=== PATIENT | male | born 1950 | race Caucasian/White ===

== ENCOUNTER → 2016-12-11 | Outpatient (REF) | payer BC ==
[2016-12-11 12:17] LABS: ALBUMIN 3.7 GM/DL (3.2-5.2); ALBUMIN/GLOBULIN RATIO 1.06 (1.00-1.93); ALKALINE PHOSPHATASE 82 U/L (45-117); ALT/SGPT 48 U/L (12-78); ANION GAP 9 MEQ/L (8-16); AST/SGOT 30 U/L (15-37); BILIRUBIN,TOTAL 0.5 MG/DL (0.2-1.0); BLOOD UREA NITROGEN 11 MG/DL (7-18); CALCIUM LEVEL 8.8 MG/DL (8.8-10.2); CARBON DIOXIDE LEVEL 27 MEQ/L (21-32); CHLORIDE LEVEL 102 MEQ/L (98-107); CHOLESTEROL LEVEL 174 MG/DL (<200); CREATININE FOR GFR 0.73 MG/DL (0.70-1.30); GLOMERULAR FILTRATION RATE > 60.0 (>49); GLUCOSE, FASTING 121 MG/DL (80-110); POTASSIUM SERUM 4.1 MEQ/L (3.5-5.1); SODIUM LEVEL 138 MEQ/L (136-145); TOTAL PROTEIN 7.2 GM/DL (6.4-8.2); TRIGLYCERIDES LEVEL 69 MG/DL (<150)
== END ==
LOC: M SFHCCLAY 07:00
PROVIDERS: ATTEND Family Medicine
DX: E78.00 Pure hypercholesterolemia, unspecified (principal); Z12.5 Encounter for screening for malignant neoplasm of prostate; I10 Essential (primary) hypertension
CPT/HCPCS: 80053; 80061; 84443; G0103

== ENCOUNTER → 2017-01-29 | Outpatient (CLI) | payer BC ==
--- NOTE | 2017-01-29 13:24 | REP ---
Clinical: Lung screening. Smoking history. Technique: Axial noncontrast low-dose imaging from the thoracic inlet to the upper abdomen using lung screening technique. Findings: Scattered bilateral fibrosis and scarring with associated bronchiectasis. No obvious pulmonary nodule, consolidation or mass lesion. No pleural effusion or pneumothorax. Tracheobronchial tree appears patent. Mediastinum suggests atherosclerotic changes of the coronary arteries. Impression: Lung-RADS category 1 although subtle early density may be obscured by the above mentioned chronic changes. Signed by Clark Patel MD 01/29/2017 01:16 P
== END ==
LOC: M RAD 12:55
PROVIDERS: ATTEND Family Medicine
DX: Z12.2 Encounter for screening for malignant neoplasm of respiratory organs (principal); Z72.0 Tobacco use

== ENCOUNTER → 2018-04-06 | Outpatient (REF) | payer MEDICARE ==
[2018-04-06 11:48] LABS: ALBUMIN 3.3 GM/DL (3.2-5.2); ALBUMIN/GLOBULIN RATIO 0.79 (1.00-1.93); ALKALINE PHOSPHATASE 101 U/L (45-117); ALT/SGPT 15 U/L (12-78); ANION GAP 6 MEQ/L (8-16); AST/SGOT 13 U/L (7-37); BILIRUBIN,TOTAL 0.4 MG/DL (0.2-1.0); BLOOD UREA NITROGEN 12 MG/DL (7-18); CALCIUM LEVEL 8.5 MG/DL (8.8-10.2); CARBON DIOXIDE LEVEL 27 MEQ/L (21-32); CHLORIDE LEVEL 106 MEQ/L (98-107); CHOLESTEROL LEVEL 151 MG/DL (<200); CHOLESTEROL RISK RATIO 3.212 (<5); GLOMERULAR FILTRATION RATE > 60.0 (>49); GLUCOSE, FASTING 106 MG/DL (70-100); HDL CHOLESTEROL 47 MG/DL (>40); LDL CHOLESTEROL 93.2 MG/DL (<100); NON-HDL-C 104 MG/DL; POTASSIUM SERUM 4.1 MEQ/L (3.5-5.1); SODIUM LEVEL 139 MEQ/L (136-145); TOTAL PROTEIN 7.5 GM/DL (6.4-8.2); TRIGLYCERIDES LEVEL 54 MG/DL (<150)
== END ==
LOC: M SFHCCLAY 07:04
DX: E78.00 Pure hypercholesterolemia, unspecified (principal); Z12.5 Encounter for screening for malignant neoplasm of prostate; I10 Essential (primary) hypertension
CPT/HCPCS: 84443

== ENCOUNTER → 2018-04-16 | Outpatient (CLI) | payer MEDICARE | LOC: M CLY 10:14 | DX: M25.552 Pain in left hip (principal) | CPT/HCPCS: 73502; 93005 ==

== ENCOUNTER → 2018-05-14 | Outpatient (CLI) | payer MEDICARE | LOC: M CLY 08:30 | DX: M19.071 Primary osteoarthritis, right ankle and foot (principal); M79.5 Residual foreign body in soft tissue | CPT/HCPCS: 73610 ==

== ENCOUNTER → 2018-08-11 | Outpatient (CLI) | payer MEDICARE | LOC: M RAD 10:29 | DX: R91.8 Other nonspecific abnormal finding of lung field (principal) | CPT/HCPCS: 71250 ==

== ENCOUNTER → 2018-11-12 | Outpatient (CLI) | payer MEDICARE ==
--- NOTE | 2018-11-12 17:15 | REP ---
HISTORY: Followup abnormal lung field findings. COMPARISON: All priors were reviewed, the latest of which are dated 08/11/2018. The lack of intravenous contrast decreases the sensitivity of the exam. There is mediastinal and suspected hilar adenopathy, status quo. There are no pleural or pericardial effusions. There is no change in the imaged upper abdomen. Note is made of cholelithiasis and bilateral renovascular calcifications. There is no change in the osseous structures. Evaluation of the lung lovell again show chronic asymmetric densities and somewhat ground glass and patchy opacities, status quo. There is cylindrical and in fact varicoid bronchiectasis with possible early cystic bronchiectatic changes as well. The consolidation seen previously in the right lower lobe has resolved to baseline chronic change when compared to older priors, some of which are from outside institutions. No new abnormal opacities have developed. IMPRESSION: Chronic changes as described above. Electronically Signed by Butch Davis DO 11/15/2018 05:25 P
== END ==
LOC: M RAD 13:11
PROVIDERS: ATTEND Internal Medicine Pulmonary Disease
DX: R91.8 Other nonspecific abnormal finding of lung field (principal)

== ENCOUNTER → 2019-04-18 | Outpatient (REF) | payer MEDICARE ==
[2019-04-18 12:55] LABS: ALBUMIN 3.6 GM/DL (3.2-5.2); ALT/SGPT 30 U/L (12-78); BILIRUBIN,TOTAL 0.5 MG/DL (0.2-1.0); BLOOD UREA NITROGEN 10 MG/DL (7-18); CALCIUM LEVEL 8.8 MG/DL (8.8-10.2); CARBON DIOXIDE LEVEL 27 MEQ/L (21-32); CHLORIDE LEVEL 104 MEQ/L (98-107); CHOLESTEROL LEVEL 187 MG/DL (<200); CREATININE FOR GFR 0.73 MG/DL (0.70-1.30); GLOMERULAR FILTRATION RATE > 60.0 (>49); GLUCOSE, FASTING 102 MG/DL (70-100); HDL CHOLESTEROL 68 MG/DL (>40); LDL CHOLESTEROL 104 MG/DL (<100); NON-HDL-C 119 MG/DL; POTASSIUM SERUM 4.6 MEQ/L (3.5-5.1); SODIUM LEVEL 137 MEQ/L (136-145); TOTAL PROTEIN 7.2 GM/DL (6.4-8.2); TRIGLYCERIDES LEVEL 76 MG/DL (<150)
== END ==
LOC: M SFHCCLAY 06:55
PROVIDERS: ATTEND Family Medicine
DX: I10 Essential (primary) hypertension (principal); E78.00 Pure hypercholesterolemia, unspecified

== ENCOUNTER → 2019-05-02 | Outpatient (CLI) | payer MEDICARE ==
--- NOTE | 2019-05-02 11:38 | REP ---
Clinical: Chest pain. Technique: PA and lateral. Comparison: 07/08/2018. Findings: Mediastinum and cardiac silhouette are normal. COPD/emphysematous changes are appreciated along with coarsened perihilar and primarily bibasilar interstitial changes are again appreciated. Blunting of the right costophrenic angle and diaphragmatic surface is consistent with chronic change related to prior effusion. Skeletal structures demonstrate age-related degenerative change and old healed rib fractures. Impression: COPD and chronic coarsened interstitial changes. Chronic pleuroparenchymal changes. No obvious acute process. If the patient remains symptomatic consider chest CT for further investigation.
== END ==
LOC: M CLY 10:49
PROVIDERS: ATTEND Internal Medicine Pulmonary Disease
DX: J44.9 Chronic obstructive pulmonary disease, unspecified (principal)

== ENCOUNTER → 2020-03-14 | Outpatient (CLI) | payer MEDICARE ==
--- NOTE | 2020-03-14 09:47 | REP ---
CHEST TWO VIEWS: Two views of the chest are performed and compared to a prior study of 05/02/2019. There is stable bilateral interstitial fibrosis with no evidence of superimposed acute infiltrate. There is mild elevation of the right hemidiaphragm and blunting of the right costophrenic angle unchanged. The heart is not significantly enlarged. There is calcification of the thoracic aorta. Mediastinal silhouette is unchanged. There are mild degenerative changes of the spine. IMPRESSION: Stable chronic changes without evidence of acute pulmonary disease. Electronically Signed by Shay Melendez MD 03/14/2020 10:53 A
== END ==
LOC: M CLY 08:32
PROVIDERS: ATTEND Internal Medicine Pulmonary Disease
DX: J47.9 Bronchiectasis, uncomplicated (principal); R91.8 Other nonspecific abnormal finding of lung field

== ENCOUNTER → 2020-05-03 | Outpatient (REF) | payer MEDICARE ==
[~2020-05-03] MED LIST: AMBI5TAB PO; AMLO1TAB25 PO; ARNU1INH PO; AZEL1SPR3 NARES; ESOM1CAP5 PO; FLOV250A2 IN; FURO20TA2 PO; IBUP200C27 PO; LASI20TA3 PO; LISI20TA33 PO; LISI20TA35 PO; LORA1TAB4 PO; MAGICMW PO; METO5TAB2 PO; OLAN10TA12 PO; ONDA8TAB10 PO; OXYC1CAP PO; OXYC1TAB23 PO; PRED10PA2 PO; PROC10TA4 PO; VENTAER INH; esomeprazole PO
[2020-05-03 11:41] LABS: BASO # 0.1 10^3/uL (0.0-0.2); BASO % 0.9 % (0.0-1.0); EOS # 0.1 10^3/uL (0.0-0.5); EOS % 1.2 % (0.0-3.0); HEMATOCRIT 40.5 % (42.0-52.0); HEMOGLOBIN 14.3 g/dl (13.5-17.5); LYMPH # 1.7 10^3/uL (1.5-5.0); LYMPH % 18.2 % (24.0-44.0); MEAN CORPUSCULAR HGB CONC 35.3 g/dl (32.0-36.5); MEAN CORPUSCULAR VOLUME 99.3 fl (80.0-96.0); MONO # 0.9 10^3/uL (0.0-0.8); MONO % 9.9 % (0.0-5.0); NEUTROPHILS # 6.4 10^3/uL (1.5-8.5); NEUTROPHILS % 69.4 % (36.0-66.0); PLATELET COUNT, AUTOMATED 250 10^3/uL (150-450); RED BLOOD COUNT 4.08 10^6/uL (4.30-6.10); WHITE BLOOD COUNT 9.2 10^3/uL (4.0-10.0)
[2020-05-03 11:52] LABS: ALBUMIN 3.6 GM/DL (3.2-5.2); ALT/SGPT 32 U/L (12-78); BILIRUBIN,TOTAL 0.6 MG/DL (0.2-1.0); BLOOD UREA NITROGEN 18 MG/DL (7-18); CALCIUM LEVEL 9.1 MG/DL (8.8-10.2); CARBON DIOXIDE LEVEL 26 MEQ/L (21-32); CHLORIDE LEVEL 104 MEQ/L (98-107); CHOLESTEROL LEVEL 192 MG/DL (<200); CREATININE FOR GFR 0.89 MG/DL (0.70-1.30); GLOMERULAR FILTRATION RATE > 60.0 (>49); GLUCOSE, FASTING 112 MG/DL (70-100); HDL CHOLESTEROL 60 MG/DL (>40); IRON (FE) 147 UG/DL (65-175); LDL CHOLESTEROL 116 MG/DL (<100); MAGNESIUM LEVEL 2.2 MG/DL (1.8-2.4); NON-HDL-C 132 MG/DL; SODIUM LEVEL 136 MEQ/L (136-145); TOTAL PROTEIN 7.4 GM/DL (6.4-8.2); TRIGLYCERIDES LEVEL 82 MG/DL (<150)
[2020-05-03 12:07] LABS: HEMOGLOBIN A1c 6.2 %
== END ==
LOC: M SFHCCLAY 08:04
PROVIDERS: ATTEND Family Medicine
DX: I10 Essential (primary) hypertension (principal); R73.01 Impaired fasting glucose; E78.2 Mixed hyperlipidemia; M25.552 Pain in left hip; Z12.5 Encounter for screening for malignant neoplasm of prostate; Z13.0 Encounter for screening for diseases of the blood and blood-forming organs and certain disorders involving the immune mechanism; Z13.21 Encounter for screening for nutritional disorder
CPT/HCPCS: 80053; 80061; 82652; 83036; 83540; 83735; 85025; G0103

== ENCOUNTER → 2020-07-23 | Outpatient (CLI) | payer MEDICARE ==
[~2020-07-23] MED LIST changes: -ESOM1CAP5 PO; -FURO20TA2 PO; -LASI20TA3 PO; +LISI-538 PO; -LISI20TA33 PO; -LORA1TAB4 PO; -MAGICMW PO; -METO5TAB2 PO; -OLAN10TA12 PO
[2020-07-23 13:24] LABS: BASO # 0.1 10^3/uL (0.0-0.2); BASO % 0.6 % (0.0-1.0); EOS % 0.1 % (0.0-3.0); HEMATOCRIT 45.7 % (42.0-52.0); HEMOGLOBIN 15.3 g/dl (13.5-17.5); LYMPH % 6.4 % (24.0-44.0); MEAN CORPUSCULAR HEMOGLOBIN 33.2 pg (27.0-33.0); MEAN CORPUSCULAR HGB CONC 33.5 g/dl (32.0-36.5); MEAN CORPUSCULAR VOLUME 99.1 fl (80.0-96.0); MONO # 0.6 10^3/uL (0.0-0.8); MONO % 3.7 % (0.0-5.0); NEUTROPHILS % 88.1 % (36.0-66.0); PLATELET COUNT, AUTOMATED 331 10^3/uL (150-450); RED BLOOD COUNT 4.61 10^6/uL (4.30-6.10); WHITE BLOOD COUNT 14.8 10^3/uL (4.0-10.0)
[2020-07-23 13:49] LABS: ALBUMIN 3.6 GM/DL (3.2-5.2); ALT/SGPT 38 U/L (12-78); BILIRUBIN,TOTAL 0.5 MG/DL (0.2-1.0); BLOOD UREA NITROGEN 18 MG/DL (7-18); CALCIUM LEVEL 9.5 MG/DL (8.8-10.2); CARBON DIOXIDE LEVEL 27 MEQ/L (21-32); CHLORIDE LEVEL 105 MEQ/L (98-107); CREATININE FOR GFR 0.84 MG/DL (0.70-1.30); GLOMERULAR FILTRATION RATE > 60.0 (>49); GLUCOSE, FASTING 108 MG/DL (70-100); POTASSIUM SERUM 4.1 MEQ/L (3.5-5.1); SODIUM LEVEL 140 MEQ/L (136-145); TOTAL PROTEIN 7.4 GM/DL (6.4-8.2)
[2020-08-19 20:07] LABS: ASPERGILLUS FLAVUS ABY Negative (Neg:<1:1); ASPERGILLUS FUMIGATUS ABY Negative (Neg:<1:1); ASPERGILLUS NIGER ABY Negative (Neg:<1:1); BLASTOMYCES ANTIBODY LEVEL Negative (Neg:<1:1); CRYPTOCOCCUS ANTIGEN SER Negative (Negative); HISTOPLASMOSIS ANTIBODY Negative (Neg:<1:1)
== END ==
LOC: M LAB 10:31
PROVIDERS: ATTEND Internal Medicine Pulmonary Disease
DX: J47.9 Bronchiectasis, uncomplicated (principal)

== ENCOUNTER → 2020-08-01 | Outpatient (CLI) | payer MEDICARE | LOC: M LABSMTC 12:19 | PROVIDERS: ATTEND Anesthesiology | DX: Z01.812 Encounter for preprocedural laboratory examination (principal); Z20.828 Contact with and (suspected) exposure to other viral communicable diseases | CPT/HCPCS: C9803; U0003 ==

== ENCOUNTER 2020-08-06 05:59 | Day surgery (SDC) | payer MEDICARE ==
[~2020-08-06] VITALS: Ht 177.8 cm; Wt 97.1 kg
[~2020-08-06 05:59] MED LIST changes: -AMBI5TAB PO; -AMLO1TAB25 PO; -ARNU1INH PO; -AZEL1SPR3 NARES; -FLOV250A2 IN; -LISI-538 PO; -LISI20TA35 PO; -ONDA8TAB10 PO; -OXYC1CAP PO; -OXYC1TAB23 PO; -PROC10TA4 PO; -VENTAER INH; -esomeprazole PO
[2020-08-06] MEDS ORDERED: LR 1,000 ML IV ONE (06:15)
[2020-08-06] MEDS ORDERED: VENTAER INH (06:39)
[2020-08-06] MEDS ORDERED: AMLO1TAB25 PO (06:39)
[2020-08-06] MEDS ORDERED: LISI-538 PO (06:39)
[2020-08-06] MEDS ORDERED: ARNU1INH PO (06:39)
[2020-08-06] MEDS ORDERED: ALBUTEROL SULFATE 2.5 MG/0.5 ML INH NEB SOLN INH ONE (06:45)
[2020-08-06] MEDS ORDERED: LIDOCAINE 4% INJ 5ML AMP INH ONE (06:45)
[2020-08-06 06:57] LABS: INR 0.9; PROTHROMBIN TIME 12.3 SECONDS (12.5-14.3)
[2020-08-06 06:58] LABS: PARTIAL THROMBOPLASTIN TIME 27.3 SECONDS (24.2-38.5)
[2020-08-06] MEDS ORDERED: MIDAZOLAM INJ 2MG/2ML VIAL (J2250 PER 1MG) As Ordered ONE (07:04)
[2020-08-06] MEDS ORDERED: ROCURONIUM BROMIDE 50 MG/5 ML VIAL As Ordered ONE (07:05)
[2020-08-06] MEDS ORDERED: propofoL 200 MG/20 ML VIAL As Ordered ONE (07:05)
[2020-08-06] MEDS ORDERED: fentaNYL 100 MCG/2 ML INJECTION (J3010) As Ordered ONE (07:08)
[2020-08-06] MEDS ORDERED: dexameTHASONE 4 MG/ML 1ML VIAL (J1100 PER 1MG) As Ordered ONE (07:11)
[2020-08-06] MEDS ORDERED: LIDOCAINE 2% 100MG/5ML SDV (FOR ANES.) As Ordered ONE (07:12)
[2020-08-06] MEDS ORDERED: THROMBIN SOLN 20,000 UNITS KIT As Ordered ONE (07:16)
[2020-08-06] MEDS ORDERED: EPINEPHrine 1MG/10ML SYRINGE 1.5IN As Ordered ONE (07:16)
[2020-08-06] MEDS ORDERED: LIDOCAINE 1% SDV 30ML VIAL As Ordered ONE (07:16)
[2020-08-06] MEDS ORDERED: THROMBIN SOLN 5,000 UNITS VIAL As Ordered ONE (07:18)
[2020-08-06] MEDS ORDERED: CETACAINE SPRAY 5GM As Ordered ONE (07:47)
[2020-08-06] MEDS ORDERED: ONDANSETRON 4MG/2ML VIAL As Ordered ONE (07:57)
[2020-08-06] MEDS ORDERED: SUGAMMADEX SODIUM 500 MG/5 ML VIAL (BRIDION) As Ordered ONE (07:57)
[2020-08-06] MEDS ORDERED: LABETALOL 100MG/20ML VIAL As Ordered ONE (08:24)
--- NOTE | 2020-08-06 09:08 | ROOR ---
Patient Name: Marcelo Delarosa Procedure Date: 08/06/2020 7:36 AM Date of : 1950 Admit Type: Outpatient Age: 70 Note Status: Finalized Attending MD: Nery Gibbons MD Procedure: Bronchoscopy Indications: Right lower lobe mass, Hilar lymphadenopathy of the right side, Mediastinal adenopathy Providers: Nery Gibbons MD (Doctor), Gerardo Whitehead DO, BARBARA (1st Assisting Doctor) Referring MD: 1. No Referring Physician 1. No Referring Physician, Admin. (Referring MD) Requesting Physician: Medicines: General Anesthesia, Lidocaine 4% via nebulizer with Albuterol 2.5 mg, Cetacaine topical, Epinephrine 1 mg/10 mL topical 2 mL Complications: No immediate complications. Estimated blood loss: Minimal Procedure: Pre-Anesthesia Assessment: - Prior to the procedure, a History and Physical was performed, and patient medications and allergies were reviewed. The patient's tolerance of previous anesthesia was also reviewed. The risks and benefits of the procedure and the sedation options and risks were discussed with the patient. All questions were answered, and informed consent was obtained. Prior Anticoagulants: The patient has taken no previous anticoagulant or antiplatelet agents. ASA Grade Assessment: II - A patient with mild systemic disease. After reviewing the risks and benefits, the patient was deemed in satisfactory condition to undergo the procedure. - Patient identification and proposed procedure were verified prior to the procedure by the physician. The procedure was verified in the procedure room. The Bronchoscope was introduced through the mouth, via the endotracheal tube (the patient was intubated for the procedure) and advanced to the tracheobronchial tree of both lungs. The procedure was accomplished without difficulty. The patient tolerated the procedure well. Findings: The trachea is of normal caliber. The yonas is mildly blunted. The tracheobronchial tree was examined to at least the first subsegmental level on the left side. On the left the bronchial mucosa and anatomy are normal; there was some pitting and webbing but no endobronchial lesions seen and scant secretions. On the right there was significant narrowing of the right middle lobe bronchial segment and of right lower lobe bronchial segment with mucosa that appeared abnormal: edematous, irregular and friable. Brushings of a mucosal abnormality were obtained in the right lower lobe with a cytology brush and sent for routine cytology. Endobronchial biopsies of a mucosal abnormality were performed in the right lower lobe using a forceps and sent for histopathology examination. Hemostasis was achieved using cold saline and topical ephinephrine 2ml total. An endobronchial ultrasound endoscope was utilized in order to assist with fine needle aspiration in the right paratracheal area, in the subcarinal area and in the left hilum. Transbronchial needle aspirations of a lymph nodes were performed in the right paratracheal area, in the subcarinal area and in the left hilum using an Olympus EBUS-TBNA 21 gauge needle and sent for routine cytology. The procedure was guided by ultrasound. Transbronchial needle aspiration technique was selected because the sampling site was not visible endoscopically. Impression: - Right lower lobe mass - Hilar lymphadenopathy of the right side - Mediastinal adenopathy - Brushings were obtained. - An endobronchial biopsy was performed. - Endobronchial ultrasound was performed. - A transbronchial needle aspiration was performed. Recommendation: - Follow up with bronchoscopist as previously scheduled. Attending Participation: I personally performed the entire procedure. Nery Gibbons MD 08/06/2020 9:08:00 AM Gerardo Whitehead DO, FCCP Number of Addenda: 0 Note Initiated On: 08/06/2020 7:36 AM
[2020-08-06] MEDS ORDERED: fentaNYL 100 MCG/2 ML INJECTION (J3010) IV PRN (09:15)
[2020-08-06] MEDS ORDERED: ONDANSETRON 4MG/2ML VIAL IV PRN (09:15)
[2020-08-06] MEDS ORDERED: LR 1,000 ML IV SCH (09:15)
[2020-08-06] MEDS ORDERED: METOCLOPRAMIDE INJ 10MG/2ML VIAL (J2765 PER 1) IV PRN (09:15)
--- NOTE | 2020-08-06 09:20 | REPVR ---
PROCEDURE INFORMATION: Exam: XR Chest, 1 View Exam date and time: 08/06/2020 8:53 AM Age: 70 years old Clinical indication: Condition or disease; Lung condition and disease; Other: S/P bronchoscopy; Additional info: Post op in pacu/ broncho TECHNIQUE: Imaging protocol: XR of the chest Views: 1 view. COMPARISON: CR CHEST 2 VIEW 03/14/2020 8:51 AM FINDINGS: Lungs: Newly visualized 4.7 cm ovoid mass in the right lung base, with surrounding airspace disease. Interstitial prominence. Pleural space: Mild bilateral pleural thickening, with small suspected right pleural effusion . No pneumothorax. Heart/Mediastinum: Borderline cardiomegaly and prominent epicardial fat. Vasculature: Calcification of the thoracic aorta. Bones/joints: Old rib fractures. IMPRESSION: 1. Newly visualized 4.7 cm ovoid mass in the right lung base, with surrounding airspace disease. 2. Additional findings as described above. Electronically signed by: Guicho Stevens On 08/06/2020 09:20:08 AM
[2020-08-06 10:00] VITALS: BP 148/89
[2020-08-20] MEDS ORDERED: LISI20TA35 PO (14:34)
[2020-08-20] MEDS ORDERED: OXYC1TAB23 PO (14:35)
[2020-08-20] MEDS ORDERED: esomeprazole PO (14:38)
[2020-08-20] MEDS ORDERED: AMBI5TAB PO (14:39)
[2020-08-20] MEDS ORDERED: AZEL1SPR3 NARES (14:41)
[2020-08-20] MEDS ORDERED: FLOV250A2 IN (14:43)
[2020-09-05] MEDS ORDERED: OXYC1CAP PO (09:34)
[2020-09-07] MEDS ORDERED: PROC10TA4 PO (14:39)
[2020-09-07] MEDS ORDERED: ONDA8TAB10 PO (14:39)
[2020-09-19] MEDS ORDERED: OXYC1CAP PO (15:26)
== END 2020-08-06 09:35 | disposition home or self-care (01) ==
LOC: M SDC 05:59
PROVIDERS: ATTEND Internal Medicine Pulmonary Disease
DX: C34.31 Malignant neoplasm of lower lobe, right bronchus or lung (principal); C77.1 Secondary and unspecified malignant neoplasm of intrathoracic lymph nodes; J44.9 Chronic obstructive pulmonary disease, unspecified; I10 Essential (primary) hypertension; E78.2 Mixed hyperlipidemia; Z79.52 Long term (current) use of systemic steroids; Z79.899 Other long term (current) drug therapy; Z87.891 Personal history of nicotine dependence
CPT/HCPCS: 31623; 31625; 31629; 31652; 36415; 71045; 85610; 85730; 88104; 88173; 88305; 88342; J1100; J2405; J3010; S2900

== ENCOUNTER → 2020-08-17 | Outpatient (CLI) | payer MEDICARE ==
[~2020-08-17] MED LIST changes: +AMBI5TAB PO; +AMLO1TAB25 PO; +ARNU1INH PO; +AZEL1SPR3 NARES; +FLOV250A2 IN; +LISI-538 PO; +LISI20TA35 PO; +ONDA8TAB10 PO; +OXYC1CAP PO; +OXYC1TAB23 PO; +PROC10TA4 PO; +PROHANCE 279.3MG/ML 15ML VIAL As Ordered ONE; +PROHANCE 279.3MG/ML 5ML VIAL As Ordered ONE; +VENTAER INH; +esomeprazole PO
--- NOTE | 2020-08-17 19:33 | REPVR ---
PROCEDURE INFORMATION: Exam: MR Head Without and With Contrast Exam date and time: 08/17/2020 6:33 PM Age: 70 years old Clinical indication: Condition or disease; History of cancer (specify primary cancer site): ; Primary cancer: Chest; Additional info: Secondary and unsp malignant neoplasm of intrathor TECHNIQUE: Imaging protocol: MR of the head without and with intravenous contrast. Contrast material: PROHANCE; Contrast volume: 19 ml; Contrast route: INTRAVENOUS (IV); COMPARISON: No relevant prior studies available. FINDINGS: Brain: There is no acute cortical infarction, intracranial hemorrhage or mass. There are no areas of restricted diffusion. No abnormal contrast enhancement is seen in the brain parenchyma or leptomeninges. There is increased signal on the T2 and FLAIR sequences along the posterior margin of the body of the right lateral ventricle and ex vacuo dilatation therefore this may be due to prior infarction, trauma or infection. Cerebral ventricles: The ventricles appear enlarged, but not out of proportion to the degree of parenchymal volume loss. Bones/joints: Unremarkable. Paranasal sinuses: Normal as visualized. No acute sinusitis. Mastoid air cells: Normal as visualized. No mastoid effusion. Orbits: Unremarkable. Soft tissues: Unremarkable. IMPRESSION: No evidence of metastatic disease. Electronically signed by: Angela Flynn On 08/17/2020 19:32:57 PM
== END ==
LOC: M RAD 17:25
PROVIDERS: ATTEND Internal Medicine Pulmonary Disease
DX: C77.1 Secondary and unspecified malignant neoplasm of intrathoracic lymph nodes (principal)
CPT/HCPCS: 70553; A9576

== ENCOUNTER → 2020-08-21 | Outpatient (CLI) | payer MEDICARE ==
[~2020-08-21] MED LIST changes: -PROHANCE 279.3MG/ML 15ML VIAL As Ordered ONE; -PROHANCE 279.3MG/ML 5ML VIAL As Ordered ONE
--- NOTE | 2020-08-27 11:06 | REP ---
DATE: 08/21/2020 TIME: 02:[address]: HISTORY: Staging malignant neoplasm of the intrathoracic lymph nodes. TECHNIQUE: 54 minutes following the intravenous injection of an 8.29 millicurie dose of F-18 FDG, 3-dimensional PET CT is acquired from the skull base to the proximal thighs in the usual fashion. COMPARISONS: CT study of the chest is from July 13, 2020. PET CT FINDINGS: Head and neck soft tissues are unremarkable. The patient's large right lower lobe lung mass is hypermetabolic with maximum standard uptake value of 13.92. The patient's bulky right hilar adenopathy is hypermetabolic 12.68. Large subcarinal adenopathy is hypermetabolic, 13.03. There are small AP window region lymph nodes in the left mediastinum with maximum standard uptake value 5.19. There is a large lynne metastasis in the pre-carinal lymph chain with maximum standard uptake value of 13.64. There is some infiltrative hypermetabolic uptake in the right base peripheral to the mass where maximum standard uptake value is 3.31. This may be postobstructive pneumonia. There is a small 1.5 cm nodular opacity in the right upper lobe, which is borderline inactivity. Maximum standard uptake value 2.55. In addition, there are 3 skeletal sites of hypermetabolic uptake suggestive of early skeletal metastatic disease. These include the right superior ischium where maximum standard uptake value is 3.70 and the left upper sacrum where maximum standard uptake value is 6.45. There is a focus of increased uptake in the L1 spinous process where maximum standard uptake value is 4.48. Lastly, there is a focus of increased uptake in the lateral rib cage on the left where maximum standard uptake value is 3.21. This is rib #3. No bone destruction is visible at any of these sites. No abnormal hypermetabolic uptake is seen in the adrenal glands or elsewhere in the abdomen or pelvis. This PET CT is otherwise unremarkable. IMPRESSION: Extensive hypermetabolic uptake right lower lobe, right hilar and mediastinal adenopathy. There is evidence of early skeletal metastatic disease. MTDD
== END ==
LOC: M PLARAD 12:18
PROVIDERS: ATTEND Internal Medicine Pulmonary Disease
DX: C77.1 Secondary and unspecified malignant neoplasm of intrathoracic lymph nodes (principal)
CPT/HCPCS: 78815; A9552

== ENCOUNTER → 2020-08-22 | Outpatient (CLI) | payer MEDICARE ==
--- NOTE | 2020-08-22 16:56 | RADONC.CN ---
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 He is seen for consideration of chemoradiation. Diagnosis/Treatment History Oncologic History History of right sided empyema 2018. Presented in Summer 2019 with increased cough and sputum production, CT done 07/05/20 at [facility] showed a right lung mass. He underwent bronchoscopy with biopsy on 08/06/20 which returned SCLC. He had staging MRI brain done on 08/17/20 which was negative. He had a PET-CT done on 08/21/20 which on my read shows a large RLL mass, with associated avid hilar and mediastinal lynne disease as well as some mildly avid right supraclavicular nodes. There is focal uptake in the spinous process of L2 as well as the left SI region. These findings to me are inconclusive. There are no obvious visceral metastatic lesions appreciated. PFTs 05/09/20 FVC "Reduced" FEV1 2.02 (60%) FEV/FVC 74% Interval History He feels anxious but otherwise well. He has a cough and some scant hemoptysis from time to time, nothing copious. He has some occasional substernal pain/tenderness. 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 Lives in [place], retired from the [employer]. He is a former smoker. Past Medical History: Asthma HPL Past Surgical History: Empyema s/p thora 2018 Hydrocele repair Family History: Mother of SCLC at 60 Social History: 1-2 beers per day Former smoker 40 pk year quit ~1999 Allergies / Meds Allergies: Coded Allergies: No Known Allergies (Unverified , 08/01/20) Home Meds Reported Medications Fluticasone Propionate (Flovent Diskus) 250 Mcg Blst.w.dev, 250 MCG IN DAILY 08/20/20 Azelastine HCl (Azelastine HCl) 0.1% [place].pump, 2 SPRAY NARES PRN for 30 Days, #30 ML 08/20/20 Zolpidem Tartrate (Ambien) 5 Mg Tablet, 5 MG PO QPMP PRN for sleep MDD 1 Tablet(s) for 30 Days, #30 TAB 08/20/20 [esomeprazole] No Conflict Check, 40 MG PO DAILY 08/20/20 Oxycodone HCl/Acetaminophen (Oxycodone-Acetaminophen 5-325) 1 Each Tablet, 1 TAB PO TIDP PRN for pain MDD 3 Tablet(s) for 5 Days, #15 TAB 08/20/20 Lisinopril/Hydrochlorothiazide (Lisinopril-Hctz 20-12.5 mg Tab) 1 Each Tablet, 1 TAB PO DAILY for 30 Days, #30 TAB 08/20/20 Albuterol Sulfate (Ventolin Hfa) 18 Gm Hfa.aer.ad, 2 PUFF INH Q4-6HP PRN for wheezing for 30 Days, #1 INHALER 08/06/20 Amlodipine Besylate (Amlodipine Besylate) 10 Mg Tablet, 1 TAB PO DAILY for every other day for 30 Days, #30 TAB daily 08/06/20 Fluticasone Furoate (Arnuity Ellipta) 100 Mcg Blst.w.dev, 250 MCG PO DAILY for 30 Days, #1 EA 08/06/20 Ibuprofen (Ibuprofen) 200 Mg Capsule, 800 MG PO PRN, CAP 08/01/20 Discontinued Reported Medications Lisinopril (Lisinopril) 20 Mg Tablet, 1 TAB PO DAILY for every other day for 30 Days, #30 TAB 08/06/20 Prednisone (Prednisone) 10 Mg Tab.ds.pk, 10 MG PO DAILY states last dose is this thursday08/01/20 Review of Systems Constitutional: Denies: Chills, Fever, Night Sweats Eyes: Denies: Pain, Vision change HEENT: Denies: Head Aches, Dysphagia, Sore Throat Skin: Denies: Rash, Lesions, Bruising Pulmonary: Denies: Dyspnea, Cough Cardiovascular: Denies: Chest Pain, Palpitations, Edema Gastrointestinal: Denies: Nausea, Vomiting, Abdominal Pain, Diarrhea Genitourinary: Denies: Dysuria, Frequency, Incontinence Hematologic: Denies: Bruising, Petecchia, Enlarged Lymph Nodes Musculoskeletal: Denies: Neck pain, Back pain Neurological: Denies: Weakness, Numbness, Incoordination Psych: Reports: Mood Normal; Denies: Memory Issues, Thoughts of Self Harm General Exam: Positive: Alert, Cooperative, No Acute Distress Eye Exam: Positive: PERRLA, EOMI ENT EXAM: Positive: Mucous membr. moist/pink, Pharynx Normal Neck Exam: Negative: Thyromegaly, Lymphadenopathy Chest Exam: Positive: Clear to auscultation, Diminished (Right base); Negative: Rales, Wheezing Heart Exam: Positive: Rate Normal, Regular Rhythm Abdomen Exam: Positive: Soft; Negative: Tenderness, Mass Extremity Exam: Negative: Edema, Tenderness Skin Exam: Positive: Nl turgor and temperature; Negative: Rash Neuro Exam: Positive: Normal Gait, Normal Speech, Cranial Nerves 3-12 NL Psych Exam: Positive: Mental status NL, Mood NL, Memory Intact Diagnostic and Laboratory Diagnostic Review Radiologic images, relevant labs and pathology reports were personally reviewed and discussed with Mr. Delarosa. Assessment and Plan Impression Mr. 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 He is seen for consideration of chemoradiation. Stage [id number] Stage IIIC SCLC (LS) Performance Status ECOG 0 Plan We had an extensive discussion with Mr. Delarosa regarding the diagnosis at hand and available therapeutic options. His PET-CT is not formally read as of today. I discussed that conclusively there are avid lesions in the right chest, and to my eye the right supraclavicular fossa as well. He has uptake in the spinous process of L2, without an obvious expansile lesion on CT. He also has uptake in S1 near the left SI joint, again without an obvious CT correlate. Given that these two areas are not entirely convincing for metastases (they really are inconsequentially small, biopsy may be feasible however) and that he has an extensive bulk and burden of tumor in the right chest, I would be inclined to treat his thoracic disease concurrent with cycle 2 of chemotherapy regardless of the etiology of these lesions (under an oligometastatic paradigm, rather than true ES SCLC with widespread visceral disease as is so often the case). I would give 66 Gy in 33 fractions with VMAT. I will defer to Dr. Bryant ultimately as to how to proceed as chemotherapy is the mainstay of care for both LS and ES SCLC. I will add the patient to our tumor board scheduled to meet next week for a group discussion of next steps. I note he is scheduled to begin chemotherapy the week of 09/03/20, thus if we decide to proceed with concurrent RT I would simulate the week of 09/10/20. I discussed this tentative timetable with the patient in detail. We discussed the logistics of receiving radiation therapy in detail including the need for a 1-time planning session. We reviewed side effects of treatment including fatigue, pneumonitis, and esophagitis. We briefly reviewed the role of PCI in SCLC and the improved survival outcomes associated with it. He said he would proceed with cranial RT if recommended. After discussing the risks, benefits and alternatives to radiation therapy, Mr. Delarosa was amenable to pursuing radiotherapy. All questions were answered to the patient's satisfaction. We instructed the patient that if there were any questions,concerns or changes in clinical status in the interim to contact us. Recommendations Tentatively 66 Gy in 33 fractions to the right chest disease concurrent with cycle 2 of chemotherapy Simulation week of 09/10/20 Alternative if proven metastatic is consolidative RT 45 Gy in 15 fractions after chemo PCI upon restaging post-chemo if MRI negative Tumor board discussion on PET findings and preferred management on 08/29/20 GENTRY HIDALGO MD Aug 22, 2020 16:55
--- NOTE | 2020-09-05 09:31 | MEDONCTEEN ---
Date/Time of Encounter Date of Encounter: Sep 05, 2020 Time of Encounter: 09:30 Telephone Encounter Called patient today to discuss that his insurance denied our request for VMAT- based thoracic RT. He related that his chemotherapy was only just recently approved. I was able to obtain authorization for 30 fractions of 3DCRT with IGRT today. I explained that per discussion with Dr. Bryant that we would like to have him receive 1-2 cycle of chemotherapy prior to starting RT. Patient notes he is increasingly symptomatic. He has increasing right sided chest pain, increased cough, scant hemoptysis and orthopnea, which are all worse than 2 weeks ago when I met him in consultation. For pain NSAIDS and tylenol have been ineffective. I discussed starting low dose oxycodone PRN in addition to 800 mg ibuprofen TID. He agreed to try this. Rx for 60 tablets 5 mg oxycodone sent to [facility]. I will await his chemotherapy start date prior to scheduling simulation for RT to his very symptomatic chest disease. GENTRY HIDALGO MD Sep 05, 2020 09:30
== END ==
LOC: M ONCR 14:17
PROVIDERS: ATTEND Radiology Radiation Oncology
DX: C34.91 Malignant neoplasm of unspecified part of right bronchus or lung (principal)

== ENCOUNTER → 2020-08-24 | Outpatient (CLI) | payer MEDICARE ==
[~2020-08-24] MED LIST changes: +LIDOCAINE 1% MDV 20ML VIAL As Ordered ONE; +MIDAZOLAM INJ 2MG/2ML VIAL (J2250 PER 1MG) As Ordered ONE; +ceFAZolin 1GM VIAL (J0690 PER 500MG) As Ordered ONE; +diphenhydrAMINE 50MG/ML VIAL (J1200) As Ordered ONE; +fentaNYL 100 MCG/2 ML INJECTION (J3010) As Ordered ONE
--- NOTE | 2020-08-24 09:10 | IRHP ---
[facility] IR Pre-Procedure H & P General Date of Service: Aug 24, 2020 Procedure: Same Day Surgery Interval History and Physical I have seen the patient and reviewed last H & P performed within 30 days. There is no significant interval change. History of Present Illness Chief Complaint The patient is a 70-year-old male admitted with a reason for visit of Treatment For Lung Ca. PRE-PROCEDURE DIAGNOSIS: lung cancer HEART: tachycardic HR 100. LUNGS: normal breathing at rest. ASA Classification ASA Classification: III-Severe systemic dis. Mallampati Score: II NPO: Yes Problems with prior sedation: No Obstructive Sleep Apnea: No Plan moderate sedation Allergies Coded Allergies: No Known Allergies (Unverified , 08/01/20) Home Medications Scheduled Amlodipine Besylate (Amlodipine Besylate), 1 TAB PO DAILY, (Reported) Azelastine HCl (Azelastine HCl), 2 SPRAY NARES PRN, (Reported) Fluticasone Furoate (Arnuity Ellipta), 250 MCG PO DAILY, (Reported) Fluticasone Propionate (Flovent Diskus), 250 MCG IN DAILY, (Reported) Ibuprofen (Ibuprofen), 800 MG PO PRN, (Reported) Lisinopril/Hydrochlorothiazide (Lisinopril-Hctz 20-12.5 mg Tab), 1 TAB PO DAILY, (Reported) [esomeprazole], 40 MG PO DAILY, (Reported) Scheduled PRN Albuterol Sulfate (Ventolin Hfa), 2 PUFF INH Q4-6HP PRN for wheezing, (Reported) Oxycodone HCl/Acetaminophen (Oxycodone-Acetaminophen 5-325), 1 TAB PO TIDP PRN for pain, (Reported) Zolpidem Tartrate (Ambien), 5 MG PO QPMP PRN for sleep, (Reported) Discontinued Medications Lisinopril (Lisinopril), 1 TAB PO DAILY, (Reported) Discontinued Reason: Prescription changed Prednisone (Prednisone), 10 MG PO DAILY, (Reported) Discontinued Reason: Pt states not taking VS, I&O, 24H, Fishbone Vital Signs/I&O Vital Signs Date Time Temp Pulse Resp B/P (MAP) Pulse Ox O2 Delivery O2 Flow Rate FiO2 08/24/20 08:59 104 20 95 Room Air 08/24/20 08:50 2 08/24/20 07:30 98.6 LEX,RUDY MD Aug 24, 2020 09:10
--- NOTE | 2020-08-24 09:12 | POST-OPPD ---
Postoperative Procedure Note Date Of Procedure: Aug 24, 2020 Time Of Procedure: 09:10 IR Ultrasound and fluoroscopy-guided port placement. IR Ultrasound of the neck. IR Moderate sedation. Clinical information: Lung cancer. Physician: Dr. Gomez. Procedure: The patient was advised of the benefits, risks, and alternatives of the procedure and informed consent was obtained. A time-out was performed with verification of the patient's name, MRN, site of procedure and type of procedure to be performed. The patient was positioned in the supine position on the angiographic table. The site was prepped and draped in the usual sterile fashion. Moderate sedation was performed by the physician including the presence of an independent trained RN who assisted and monitored the patient's level of consciousness and physiologic status. Following the administration of fentanyl and Versed , the physician spent 45 minutes of continuous face to face time with the patient. Ultrasound of the neck reveals a patent and compressible right internal jugular vein. A race steward radiograph reveals right lung opacifications. The neck and anterior chest wall were anesthetized with lidocaine. The right internal jugular vein was accessed using a microintroducer needle under ultrasound guidance, via a lateral approach. An 018 wire was advanced into the superior vena cava, the needle was removed and a microsheath was placed. An Amplatz wire was then passed into the inferior vena cava. An incision at the internal jugular vein access site and anterior chest wall were made using a scalpel. An incision was made at the anterior chest wall. A small pocket was created using a combination of blunt and sharp dissection. A tunneling device was then used to pass the catheter from the pocket to the neck puncture site. An 8- [place] [employer] Smart power port was then positioned in the pocket. The catheter was then measured and cut. The introducer sheath was exchanged for a peel-away sheath. The catheter was passed through the peel-away sheath into the internal jugular vein and the peel-away sheath was removed. The port tip was positioned at the cavoatrial junction. The port was then accessed with a Gibson needle. The port flushes and aspirates well. The puncture site in the neck was closed. The chest wall incision was then closed with 2-0 Vicryl and 4-0 Monocryl. Glue and Steri- Strips were applied. A sterile dressing was then applied. The patient tolerated the procedure well and was returned to the PRU in stable condition. Estimated blood loss: <5 ml. Complications: None. Conclusion: 1. Successful placement of an 8-[place] [employer] Smart power port via the right internal jugular vein. The port is ready for immediate use. 2. Patient to follow up in IR clinic in 2 weeks. Thank you for this referral. RUDY GOMEZ MD Aug 24, 2020 09:12
[2020-08-24 11:03] VITALS: BP 156/76
== END ==
LOC: M IRPRO 07:23
PROVIDERS: ATTEND Radiology Diagnostic Radiology
DX: C34.90 Malignant neoplasm of unspecified part of unspecified bronchus or lung (principal); Z79.899 Other long term (current) drug therapy
CPT/HCPCS: 36561; 99152; 99153; C1769; C1788; C1894; J0690; J1200; J1642; J1644; J2250; J3010

== ENCOUNTER → 2020-09-11 | Outpatient (POV) | payer MEDICARE ==
[~2020-09-11] MED LIST changes: -LIDOCAINE 1% MDV 20ML VIAL As Ordered ONE; -MIDAZOLAM INJ 2MG/2ML VIAL (J2250 PER 1MG) As Ordered ONE; -ceFAZolin 1GM VIAL (J0690 PER 500MG) As Ordered ONE; -diphenhydrAMINE 50MG/ML VIAL (J1200) As Ordered ONE; -fentaNYL 100 MCG/2 ML INJECTION (J3010) As Ordered ONE
--- NOTE | 2020-09-12 11:43 | IRPN ---
[facility] IR Progress Note IR Progress Note DATE: Sep 11, 2020 Patient is receiving chemotherapy and missed follow-up tele appointment. No further follow-up scheduled unless initiated by patient and/or referring provider. Thank you for this referral Allergies Coded Allergies: No Known Allergies (Unverified , 08/01/20) RUDY BURNETT MD Sep 12, 2020 11:43
== END ==
LOC: M TMIRPOV 09:08
PROVIDERS: ATTEND Radiology Diagnostic Radiology
DX: Z45.2 Encounter for adjustment and management of vascular access device (principal)

== ENCOUNTER → 2020-11-08 | Outpatient (RCR) | payer MEDICARE ==
[~2020-11-08] MED LIST changes: +FURO20TA2 PO; +LASI20TA3 PO; +LORA1TAB4 PO; +MAGICMW PO
== END ==
LOC: M ONCR 10-10 14:38
PROVIDERS: ATTEND General Practice
DX: C34.31 Malignant neoplasm of lower lobe, right bronchus or lung (principal)

== ENCOUNTER 2020-12-04 09:06 | Outpatient (RCR) | payer MEDICARE ==
--- NOTE | 2020-11-16 09:53 | RADENCPD ---
Date/Time of Encounter Date of Encounter: Nov 16, 2020 Time of Encounter: 09:48 Encounter Herve has been dealing with mid abdominal pain for the last several weeks. There is no prandial association. 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 He is not nauseous or vomiting, he is having daily BMs and passing gas. On exam he has minimal epigastric tenderness to palpation. He is on standing PRN narcotics for his esophagitis and cancer-related pain. He may have a smoldering motility issue, possibly chemotherapy related. The alternative could be a metastatic lesion. We discussed trying reglan 5 mg BID and revisiting efficacy on Thursday. If his pain fails to resolve we can obtain a scan and if there is no structural cancer-related cause, refer to GI for their assistance in management. GENTRY HIDALGO MD Nov 16, 2020 09:53
[~2020-12-04 09:06] MED LIST changes: +ESOM1CAP5 PO; +METO5TAB2 PO; +OLAN10TA12 PO
== END 2020-12-09 ==
LOC: M ONCR 09:06
PROVIDERS: ATTEND General Practice
DX: C34.31 Malignant neoplasm of lower lobe, right bronchus or lung (principal)

== ENCOUNTER → 2020-12-07 | Outpatient (CLI) | payer MEDICARE ==
[~2020-12-07] MED LIST changes: +GASTROGRAFIN SOLUTION 30ML (Q9963) As Ordered ONE; +ISOVUE-370 76% 100ML VIAL As Ordered ONE
--- NOTE | 2020-12-07 16:37 | REP ---
INDICATION: SMALL CELL LUNG CA, FOLLOW UP. COMPARISON: None TECHNIQUE: 100 cc Isovue 370 given intravenously with oral bowel preparatory contrast administration as well. FINDINGS: There is cholelithiasis. The liver, spleen, pancreas, adrenal glands, and kidneys are within normal limits. The abdominal aorta and para-aortic regions are within normal limits. Calcific atherosclerotic change is seen throughout the infrarenal abdominal aorta extending into the common iliac arteries. The bowel loops and the mesenteries are within normal limits. Scattered colonic diverticulosis is noted. There is no evidence of a mass or adenopathy. There is no free fluid or free air. There is corpora amylacea. Bone window technique throughout the examination shows chronic spinal degenerative changes IMPRESSION: 1. There is cholelithiasis 2. Colonic diverticulosis 3. No evidence of acute disease <Electronically signed by Butch Davis > 12/07/20 [id number]
--- NOTE | 2020-12-07 16:53 | REP ---
INDICATION: SMALL CELL LUNG CA. COMPARISON: Multiple the latest 07/13/2028 outside examination TECHNIQUE: 100 cc Isovue 370 intravenously. FINDINGS: The extensive mediastinal and hilar adenopathy seen on the prior examination has markedly improved. There is no new mediastinal or hilar adenopathy. There is a minimal right pleural effusion/pleural thickening. There is no pericardial effusion. Bone window technique throughout the examination shows no significant change in the appearance of the osseous structures. Evaluation of the lung lovell shows patchy right lower lobe opacities with air bronchograms. The large mass seen in the right lower lobe extending from the hilum is seen only today as potentially part of the wedge-shaped opacity aforementioned. Scattered asymmetric densities again seen throughout the lung lovell status quo. No new abnormal nodules, masses, or other significant findings have developed. Note is again made of cylindrical bronchiectasis throughout the lung lovell which appear stable. IMPRESSION: 1. There has been significant improvement as described above. 2. Right lower lobe opacities as described above subsegmental atelectasis/pneumonia. The finding could also represent the sequelae of post radiation change, however, review of the history given to me is that the patient has not receive radiation therapy 3. Other findings as described above. <Electronically signed by Butch Davis > 12/07/20 [id number]
== END ==
LOC: M RAD 11:33
PROVIDERS: ATTEND Specialist
DX: K80.20 Calculus of gallbladder without cholecystitis without obstruction (principal); C34.90 Malignant neoplasm of unspecified part of unspecified bronchus or lung
CPT/HCPCS: 71260; 74177; Q9963; Q9967

== ENCOUNTER → 2021-01-04 | Outpatient (CLI) | payer MEDICARE ==
[~2021-01-04] MED LIST changes: -GASTROGRAFIN SOLUTION 30ML (Q9963) As Ordered ONE; -ISOVUE-370 76% 100ML VIAL As Ordered ONE; -LISI-538 PO; +LISI20TA33 PO; +OXYC10TA12 PO; +PROHANCE 279.3MG/ML 15ML VIAL As Ordered ONE; +PROHANCE 279.3MG/ML 5ML VIAL As Ordered ONE
--- NOTE | 2021-01-04 16:31 | REPVR ---
PROCEDURE INFORMATION: Exam: MR Head Without and With Contrast Exam date and time: 01/04/2021 1:44 PM Age: 70 years old Clinical indication: Condition or disease; History of cancer (specify primary cancer site): ; Primary cancer: Cllc; Additional info: Malignant neoplasm of lower lobe, right bronchus or lung TECHNIQUE: Imaging protocol: MR of the head without and with intravenous contrast. Contrast material: PROHANCE; Contrast volume: 11 ml; Contrast route: INTRAVENOUS (IV); COMPARISON: MRI-Brain W/O FOLL BY WITH 08/17/2020 5:57 PM FINDINGS: Brain: Mild chronic microvascular ischemic changes. There is a 3 mm enhancing focus in the inferior right cerebellum. Cerebral ventricles: Normal. No ventriculomegaly. Bones/joints: Unremarkable. Paranasal sinuses: Normal as visualized. No acute sinusitis. Mastoid air cells: Mild effusion in bilateral mastoid air cells. Orbital cavity: Unremarkable. Soft tissues: Unremarkable. IMPRESSION: No acute infarct. A small focus of enhancement measuring 3 mm is seen in the inferior right cerebellum suspicious for metastatic disease. Continued follow-up is recommended. Electronically signed by: Mike Alonso On 01/04/2021 16:31:52 PM
== END ==
LOC: M RAD 12:34
PROVIDERS: ATTEND General Practice
DX: C34.90 Malignant neoplasm of unspecified part of unspecified bronchus or lung (principal); Z92.21 Personal history of antineoplastic chemotherapy
CPT/HCPCS: 70553; A9576

== ENCOUNTER → 2021-01-08 | Outpatient (CLI) | payer MEDICARE ==
[~2021-01-08] MED LIST changes: -PROHANCE 279.3MG/ML 15ML VIAL As Ordered ONE; -PROHANCE 279.3MG/ML 5ML VIAL As Ordered ONE
--- NOTE | 2021-01-08 14:43 | RADONC ---
Radiation Oncology Hx/FUP Radiation Oncology Hx/FUP Date of Service: Jan 08, 2021 Pt Identifier Marcelo Delarosa is a 70 year old male seen for a followup visit today at the department of radiation oncology for a history of ES SCLC [id number] he completed 4 cycles of cisplatin and etoposide and received thoracic RT concurrent with cycle 3 of chemotherapy. He has a good response in the chest and no signs of progression in the body on restaging CT scans from 12/07/20. He underwent MRI on 01/04/21 for surveillance and there is question of a solitary enhancing 0.3 cm right cerebellar lesion concerning for metastasis. He is seen today for consideration of next steps. Diagnosis/Treatment History Oncologic History History of right sided empyema 2017. Presented in Summer 2019 with increased cough and sputum production, CT done 07/05/[facility] at [facility] showed a right lung mass. He underwent bronchoscopy with biopsy on 08/06/20 which returned SCLC. He had staging MRI brain done on 08/17/20 which was negative. He had a PET-CT done on 08/21/20 which on my read shows a large RLL mass, with associated avid hilar and mediastinal lynne disease as well as some mildly avid right supraclavicular nodes. There is focal uptake in the left third rib, spinous process of L2, as well as the left SI region consistent with early bone metastases. He was started on cisplatin, etoposide and durvalumab from 09/17/20. He received thoracic RT concurrent with cycle 3 60 Gy in 30 fractions from 10/22/20-12/04/20. He completed 4 cycles of chemotherapy in total and has been maintained on durvalumab. Recent data: 12/07/20 CT chest FINDINGS: The extensive mediastinal and hilar adenopathy seen on the prior examination has markedly improved. There is no new mediastinal or hilar adenopathy. There is a minimal right pleural effusion/pleural thickening. There is no pericardial effusion. Bone window technique throughout the examination shows no significant change in the appearance of the osseous structures. Evaluation of the lung lovell shows patchy right lower lobe opacities with air bronchograms. The large mass seen in the right lower lobe extending from the hilum is seen only today as potentially part of the wedge-shaped opacity aforementioned. Scattered asymmetric densities again seen throughout the lung lovlel status quo. No new abnormal nodules, masses, or other significant findings have developed. Note is again made of cylindrical bronchiectasis throughout the lung lovell which appear stable. IMPRESSION: 1. There has been significant improvement as described above. 2. Right lower lobe opacities as described above subsegmental atelectasis/pneumonia. The finding could also represent the sequelae of post radiation change, however, review of the history given to me is that the patient has not receive radiation therapy 3. Other findings as described above. 12/07/20 CT abdomen pelvis FINDINGS: There is cholelithiasis. The liver, spleen, pancreas, adrenal glands, and kidneys are within normal limits. The abdominal aorta and para-aortic regions are within normal limits. Calcific atherosclerotic change is seen throughout the infrarenal abdominal aorta extending into the common iliac arteries. The bowel loops and the mesenteries are within normal limits. Scattered colonic diverticulosis is noted. There is no evidence of a mass or adenopathy. There is no free fluid or free air. There is corpora amylacea. Bone window technique throughout the examination shows chronic spinal degenerative changes IMPRESSION: 1. There is cholelithiasis 2. Colonic diverticulosis 3. No evidence of acute disease 01/04/21 MRI head FINDINGS: Brain: Mild chronic microvascular ischemic changes. There is a 3 mm enhancing focus in the inferior right cerebellum. Cerebral ventricles: Normal. No ventriculomegaly. Bones/joints: Unremarkable. Paranasal sinuses: Normal as visualized. No acute sinusitis. Mastoid air cells: Mild effusion in bilateral mastoid air cells. Orbital cavity: Unremarkable. Soft tissues: Unremarkable. IMPRESSION: No acute infarct. A small focus of enhancement measuring 3 mm is seen in the inferior right cerebellum suspicious for metastatic disease. Continued follow-up is recommended. Interval History Marcelo reports his dysphagia s/p RT is almost entirely resolved. He is eating at will and has gained a few lbs. He is still having pain in the mid back and low back. He is taking 2 5 mg oxycodone 1-2 times daily for his pain when it flares with activity and this generally helpful. He is having some mild nausea, but has stopped taking zofran or any other nausea meds. He is still fatigued but overall less so that during active chemoradiation. He has no BILLINGS, weakness or numbness. Current Therapy Durvalumab q3w Stage ES SCLC [id number] stage IV Social History: Former smoker 40+ pack year quit 1999 Dinks 1-2 beers daily Allergies / Meds Allergies: Coded Allergies: No Known Allergies (Unverified , 08/01/20) Home Meds Active Scripts Oxycodone HCl (Oxycodone HCl) 10 Mg Tablet, 1 TAB PO QIDP PRN for pain MDD 4 Tablet(s) for 30 Days, #120 TAB Prov:GENTRY HIDALGO MD 01/08/21 Olanzapine (Olanzapine Odt) 10 Mg Tab.rapdis, 10 MG PO QPM for 30 Days, #30 TAB Prov:DANIEL WILSON MD 11/27/20 Esomeprazole Magnesium (Esomeprazole Magnesium) 40 Mg Capsule.dr, 1 CAP PO DAILY , #90 CAP 3 Refills Prov:GENTRY HIDALGO MD 11/27/20 Metoclopramide HCl (Metoclopramide HCl) 5 Mg Tablet, 1 TAB PO BID for 30 Days, #60 TAB Prov:GENTRY HIDALGO MD 11/16/20 Furosemide (Lasix) 20 Mg Tablet, 20 MG PO DAILY for 30 Days, #30 TAB Prov:DANIEL WILSON MD 10/08/20 Furosemide (Furosemide) 20 Mg Tablet, 20 MG PO DAILY for 30 Days, #30 TAB 3 Refills Prov:DANIEL WILSON MD 10/08/20 Prochlorperazine Maleate (Prochlorperazine Maleate) 10 Mg Tablet, 10 MG PO Q8H PRN for NAUSEA, #30 TAB 6 Refills Prov:DANIEL WILSON MD 09/07/20 Ondansetron HCl (Ondansetron HCl) 8 Mg Tablet, 8 MG PO Q8H PRN for NAUSEA, #30 TAB 6 Refills Prov:DANIEL WILSON MD 09/07/20 Reported Medications Fluticasone Propionate (Flovent Diskus) 250 Mcg Blst.w.dev, 250 MCG IN DAILY 08/20/20 Azelastine HCl (Azelastine HCl) 0.1% Forsan.pump, 2 SPRAY NARES PRN for 30 Days, #30 ML 08/20/20 Lisinopril/Hydrochlorothiazide (Lisinopril-Hctz 20-12.5 mg Tab) 1 Each Tablet, 1 TAB PO DAILY for 30 Days, #30 TAB 10/12/20 Albuterol Sulfate (Ventolin Hfa) 18 Gm Hfa.aer.ad, 2 PUFF INH Q4-6HP PRN for wheezing for 30 Days, #1 INHALER 08/06/20 Amlodipine Besylate (Amlodipine Besylate) 10 Mg Tablet, 1 TAB PO DAILY for every other day for 30 Days, #30 TAB daily 08/06/20 Fluticasone Furoate (Arnuity Ellipta) 100 Mcg Blst.w.dev, 250 MCG PO DAILY for 30 Days, #1 EA 08/06/20 Ibuprofen (Ibuprofen) 200 Mg Capsule, 800 MG PO PRN, CAP 08/01/20 Discontinued Scripts Lorazepam (Lorazepam) 1 Mg Tablet, 0.5 TAB PO BID PRN for ANXIETY/AGITATION MDD 1 mg, #30 TAB Prov:GENTRY HIDALGO MD 11/30/20 Oxycodone HCl (Oxycodone Hydrochloride) 5 Mg Capsule, 5 MG PO QIDP PRN for pain MDD 4 Capsule(s), #120 CAP Prov:GENTRY HIDALGO MD 11/27/20 Magic Mouthwash (First-Mouthwash Blm) 1 Ea Susp, 10 ML PO QID PRN for MUCOSITIS, #240 ML 5 Refills (Diphenhydramine/maalox/lidocaine 1:1:1) May compound if kit unavailable/not covered by insurance Prov:GENTRY HIDALGO MD 11/05/20 Review of Systems Review of Systems Constitutional: Reports: Fatigue; Denies: Chills, Fever, Weight Loss Eyes: Denies: Pain, Vision change HEENT: Denies: Head Aches, Dysphagia Skin: Denies: Rash Pulmonary: Reports: Cough; Denies: Dyspnea Cardiovascular: Denies: Chest Pain, Palpitations Gastrointestinal: Reports: Nausea; Denies: Vomiting, Abdominal Pain Genitourinary: Denies: Dysuria, Frequency Hematologic: Denies: Bruising Endocrine: Denies: Cold Intolerance Musculoskeletal: Reports: Back pain; Denies: Neck pain Neurological: Denies: Weakness, Numbness, Incoordination Psych: Reports: Mood Normal Physical Examination Vital Signs Wt 188 lbs T 97.3 P 88 RR 22 BP 126/93 O2 96% Pain 6 back Fatigue 1 General Exam: Positive: Alert, Cooperative; Negative: No Acute Distress Eye Exam: Positive: PERRLA, EOMI ENT EXAM: Positive: Atraumatic Neck Exam: Positive: Supple; Negative: Lymphadenopathy Chest Exam: Positive: Clear to auscultation, Normal air movement Heart Exam: Positive: Rate Normal, Regular Rhythm Abdomen Exam: Positive: Soft; Negative: Tenderness Extremity Exam: Negative: Edema Skin Exam: Positive: Nl turgor and temperature Neuro Exam: Positive: Normal Gait, Normal Speech, Cranial Nerves 3-12 NL Psych Exam: Positive: Mental status NL Diagnostic and Laboratory Diagnostic Review Radiologic images, relevant labs and pathology reports were personally reviewed and discussed with Mr. Delarosa. Assessment and Plan Impression Assessment Mr. Delarosa is a 70 year old male with a history of ES SCLC [id number] he completed 4 cycles of cisplatin and etoposide and received thoracic RT concurrent with cycle 3 of chemotherapy. He has a good response in the chest and no signs of progression in the body on restaging CT scans from 12/07/20. He underwent MRI on 01/04/21 for surveillance and there is question of a solitary enhancing 0.3 cm right cerebellar lesion concerning for metastasis. He is seen today for consideration of next steps. On thorough review of his recent imaging I see a near CR in the chest, and as before there is no evidence of CT overt bony lesions (the bone lesions at diagnosis were PET-CT avid without bony destruction), or visceral metastases. He continues to have back pain which is chronic to some extent. For this I will prescribe another month of oxycodone 10 mg QID PRN. If he fails this or requires escalating doses at or before next visit, I discussed referring him to a paint formulator and he agreed. With regard to his MRI there is a clear 0.3 cm lesion in the right cerebellum but as this appears to be solitary, he is having no neurologic symptoms and there is significant motion artifact present on his scan, I recommended we repeat an MRI in 2 months time. For this, I will attempt to obtain thin slice T1+C images which are more sensitive for small metastases. If there is intracranial progression overt on the next scan, then I would recommend WBRT with namenda. This would likely come at a neurocognitive side effect cost. As he is on immunotherapy, there is at least theoretically some chance that a small intracranial lesion may regress without the addition of RT. Performance Status ECOG 1 Plan MRI head in 2 months Refilled oxycodone 10 mg QID PRN Referral to PC if pain medication requirement escalates further Mr. Delarosa was encouraged to call with questions or concerns in the interim period. Billing Statement Total time of [23] minutes was spent preparing for the visit [1], obtaining HPI [4], examining the patient [2], reviewing diagnostic tests [5], discussing management options [5], coordinating care [1], and writing this note [5]. GENTRY HIDALGO MD Jan 08, 2021 13:25
== END ==
LOC: M ONCR 11:09
PROVIDERS: ATTEND General Practice
DX: C34.31 Malignant neoplasm of lower lobe, right bronchus or lung (principal); K80.80 Other cholelithiasis without obstruction; I70.0 Atherosclerosis of aorta; K57.30 Diverticulosis of large intestine without perforation or abscess without bleeding; N42.89 Other specified disorders of prostate

== ENCOUNTER → 2021-02-25 | Outpatient (CLI) | payer MEDICARE ==
[~2021-02-25] MED LIST changes: +BREO1INH3 PO; +ISOVUE-370 76% 100ML VIAL As Ordered ONE
--- NOTE | 2021-02-25 14:32 | REP ---
INDICATION: LUNG CA COMPARISON: None TECHNIQUE: Axial contrast enhanced images from the thoracic inlet to the upper abdomen with coronal and sagittal reformations using 75 ml Isovue 370 intravenous contrast [address]. [address] examination was performed using the following dose reduction techniques: Automated exposure control, adjustment of mA and/or kv according to the patient's size, and use of iterative reconstruction technique. FINDINGS: Increased irregular septal thickening, interstitial opacities, ill-defined small areas of confluent airspace disease, pleural thickening and small pleural reaction noted throughout the right hemithorax as well as small similar area of airspace disease in the apical left lower lobe. Mediastinal and hilar adenopathy is also noted and appears slightly more prominent than prior examination. Findings are suspicious for active progressive small cell lung cancer. Underlying COPD/emphysematous changes with bronchiectasis again noted and similar to prior examination. Further evaluation of the mediastinum demonstrates atherosclerotic changes to the thoracic aorta and coronary arteries without aortic aneurysm/dissection, cardiomegaly or pericardial effusion. Small hiatal hernia noted at the gastroesophageal junction. Skeletal structures demonstrate degenerative changes and old rib fractures. [id number] identified with catheter extending into the right jugular vein without extension into the SVC. IMPRESSION: Increasing ill-defined pleuroparenchymal changes with septal thickening, pleural thickening, and mildly prominent lymph nodes involving the right hemithorax and new focus of similar process in the apical segment left lower lobe suspicious for progressive neoplastic changes. <Electronically signed by Clark Patel > 02/25/21 [id number]
== END ==
LOC: M RAD 13:43
PROVIDERS: ATTEND Specialist
DX: C34.90 Malignant neoplasm of unspecified part of unspecified bronchus or lung (principal)
CPT/HCPCS: 71260; Q9967

== ENCOUNTER → 2021-03-11 | Outpatient (CLI) | payer MEDICARE ==
[~2021-03-11] MED LIST changes: -ISOVUE-370 76% 100ML VIAL As Ordered ONE; +PROHANCE 279.3MG/ML 15ML VIAL As Ordered ONE; +PROHANCE 279.3MG/ML 5ML VIAL As Ordered ONE
--- NOTE | 2021-03-11 15:30 | REP ---
INDICATION: LUNG CA, ? BRAIN METS. COMPARISON: Comparison brain MRI study is from 04 January 2021.. TECHNIQUE: Axial and sagittal imaging planes are utilized for T1 and T2-weighted scans. Sequences include spin-echo, fast spin echo, FLAIR, and diffusion weighted sequences. Post gadolinium enhanced imaging is included in all 3 planes. 16 mL of intravenous ProHance is administered. FINDINGS: No bony calvarial lesion is seen. Craniocervical junction and upper cervical cord are normal in appearance. There is no MR evidence of significant paranasal sinus disease. No intraorbital abnormality is seen. There is a right inferior cerebellar mass increased in size from the prior study now measuring 2.2 cm in diameter. There is heterogeneous enhancement within this mass and there is surrounding vasogenic edema in the right inferior cerebellar hemisphere. This is consistent with metastasis. There is a additional and new focus in the left inferior cerebellar hemisphere measuring 1.1 cm in diameter. There is minimal adjacent edema. There is a 3rd focus of contrast enhancement measuring 4 mm in diameter in the right superior is there a bowel on consistent with the 3rd posterior fossa metastasis. No supratentorial metastatic disease is appreciated. There is some motion artifact on the post gadolinium enhanced images. No extra-axial fluid collection or hemorrhage is seen. There is no evidence of acute ischemia. There is periventricular white matter T2 hyperintensity pattern again noted unchanged. 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 The originally described right inferior cerebellar lesion has grown significantly in size now measuring 2.2 cm, previously 3 mm. There are 2 additional posterior fossa lesions today.. <Electronically signed by Quinn Burns > 03/11/21 [id number]
== END ==
LOC: M RAD 12:29
PROVIDERS: ATTEND General Practice
DX: C34.31 Malignant neoplasm of lower lobe, right bronchus or lung (principal); C79.31 Secondary malignant neoplasm of brain
CPT/HCPCS: 70553; A9576

== ENCOUNTER → 2021-03-12 | Outpatient (CLI) | payer MEDICARE ==
[~2021-03-12] MED LIST changes: +MEMA10TA19 PO; +MEMA1TAB3 PO; -PROHANCE 279.3MG/ML 15ML VIAL As Ordered ONE; -PROHANCE 279.3MG/ML 5ML VIAL As Ordered ONE
--- NOTE | 2021-03-12 13:27 | RADONC ---
Radiation Oncology Hx/FUP Radiation Oncology Hx/FUP Date of Service: March 12, 2021 Pt Identifier Marcelo Delarosa is a 71 year old male seen for a followup visit today at the department of radiation oncology for a history of ES SCLC [id number] he completed 4 cycles of cisplatin and etoposide and received thoracic RT concurrent with cycle 3 of chemotherapy 60 Gy in 30 fractions completed 12/04/20. He had an initial favorable response in the chest on CT from 12/07/20. He had a restaging MRI head on 01/04/21 with a solitary and indeterminate 3 mm lesion in the right cerebellum. We opted to repeat the MRI in 2 months. This was done on 03/11/21 and showed overt progression in the brain. Diagnosis/Treatment History Oncologic History History of right sided empyema 2017. Presented in Summer 2019 with increased cough and sputum production, CT done 07/05/20 at [facility] showed a right lung mass. He underwent bronchoscopy with biopsy on 08/06/20 which returned SCLC. He had staging MRI brain done on 08/17/20 which was negative. He had a PET-CT done on 08/21/20 which on my read shows a large RLL mass, with associated avid hilar and mediastinal lynne disease as well as some mildly avid right supraclavicular nodes. There is focal uptake in the left third rib, spinous process of L2, as well as the left SI region consistent with early bone metastases. He was started on cisplatin, etoposide and durvalumab from 09/17/20. He received thoracic RT concurrent with cycle 3 60 Gy in 30 fractions from 10/22/20-12/04/20. He completed 4 cycles of chemotherapy in total and has been maintained on durvalumab. Recent data: 02/25/21 CT chest FINDINGS: Increased irregular septal thickening, interstitial opacities, ill-defined small areas of confluent airspace disease, pleural thickening and small pleural reaction noted throughout the right hemithorax as well as small similar area of airspace disease in the apical left lower lobe. Mediastinal and hilar adenopathy is also noted and appears slightly more prominent than prior examination. Findings are suspicious for active progressive small cell lung cancer. Underlying COPD/emphysematous changes with bronchiectasis again noted and similar to prior examination. Further evaluation of the mediastinum demonstrates atherosclerotic changes to the thoracic aorta and coronary arteries without aortic aneurysm/dissection, cardiomegaly or pericardial effusion. Small hiatal hernia noted at the gastroesophageal junction. Skeletal structures demonstrate degenerative changes and old rib fractures. 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 IMPRESSION: Increasing ill-defined pleuroparenchymal changes with septal thickening, pleural thickening, and mildly prominent lymph nodes involving the right hemithorax and new focus of similar process in the apical segment left lower lobe suspicious for progressive neoplastic changes. 03/11/21 MRI head FINDINGS: No bony calvarial lesion is seen. Craniocervical junction and upper cervical cord are normal in appearance. There is no MR evidence of significant paranasal sinus disease. No intraorbital abnormality is seen. There is a right inferior cerebellar mass increased in size from the prior study now measuring 2.2 cm in diameter. There is heterogeneous enhancement within this mass and there is surrounding vasogenic edema in the right inferior cerebellar hemisphere. This is consistent with metastasis. There is a additional and new focus in the left inferior cerebellar hemisphere measuring 1.1 cm in diameter. There is minimal adjacent edema. There is a 3rd focus of contrast enhancement measuring 4 mm in diameter in the right superior is there a bowel on consistent with the 3rd posterior fossa metastasis. No supratentorial metastatic disease is appreciated. There is some motion artifact on the post gadolinium enhanced images. No extra-axial fluid collection or hemorrhage is seen. There is no evidence of acute ischemia. There is periventricular white matter T2 hyperintensity pattern again noted unchanged. 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 The originally described right inferior cerebellar lesion has grown significantly in size now measuring 2.2 cm, previously 3 mm. There are 2 additional posterior fossa lesions today.. Interval History Marcelo reports he is having continued SOB and cough. His pain in the chest is well-controlled. Eating and drinking ok, has lost weight. No BILLINGS, N, V or imbalance. Current Therapy Durvalumab Stage ES SCLC [id number] stage IV Social History: Former smoker 40+ pack year quit 1999 Dinks 1-2 beers daily Allergies / Meds Allergies: Coded Allergies: No Known Allergies (Unverified , 08/01/20) Home Meds Active Scripts Oxycodone HCl (Oxycodone HCl) 10 Mg Tablet, 1 TAB PO QIDP PRN for pain MDD 4 Tablet(s) for 30 Days, #120 TAB Prov:GENTRY HIDALGO MD 03/11/21 Metoclopramide HCl (Metoclopramide HCl) 5 Mg Tablet, 1 TAB PO BID for 30 Days, #60 TAB Prov:GENTRY HIDALGO MD 11/16/20 Furosemide (Furosemide) 20 Mg Tablet, 20 MG PO DAILY for 30 Days, #30 TAB 3 Refills Prov:DANIEL BRYANT MD 10/08/20 Reported Medications Fluticasone/Vilanterol (Breo Ellipta 200-25 Mcg INH) 1 Each Blst.w.dev, 1 PUFF PO DAILY for 30 Days, #1 EA 01/21/21 Fluticasone Propionate (Flovent Diskus) 250 Mcg Blst.w.dev, 250 MCG IN DAILY 08/20/20 Azelastine HCl (Azelastine HCl) 0.1% [place].pump, 2 SPRAY NARES PRN for 30 Days, #30 ML 08/20/20 Lisinopril/Hydrochlorothiazide (Lisinopril-Hctz 20-12.5 mg Tab) 1 Each Tablet, 1 TAB PO DAILY for 30 Days, #30 TAB 08/20/20 Albuterol Sulfate (Ventolin Hfa) 18 Gm Hfa.aer.ad, 2 PUFF INH Q4-6HP PRN for wheezing for 30 Days, #1 INHALER 08/06/20 Amlodipine Besylate (Amlodipine Besylate) 10 Mg Tablet, 1 TAB PO DAILY for every other day for 30 Days, #30 TAB daily 08/06/20 Ibuprofen (Ibuprofen) 200 Mg Capsule, 800 MG PO PRN, CAP 08/01/20 Discontinued Scripts Olanzapine (Olanzapine Odt) 10 Mg Tab.rapdis, 10 MG PO QPM for 30 Days, #30 TAB Prov:DANIEL BRYANT MD 11/27/20 Esomeprazole Magnesium (Esomeprazole Magnesium) 40 Mg Capsule.dr, 1 CAP PO DAILY, #90 CAP 3 Refills Prov:GENTRY HIDALGO MD 11/27/20 Prochlorperazine Maleate (Prochlorperazine Maleate) 10 Mg Tablet, 10 MG PO Q8H PRN for NAUSEA, #30 TAB 6 Refills Prov:DANIEL BRYANT MD 09/07/20 Ondansetron HCl (Ondansetron HCl) 8 Mg Tablet, 8 MG PO Q8H PRN for NAUSEA, #30 TAB 6 Refills Prov:DANIEL BRYANT MD 09/07/20 Review of Systems Review of Systems Constitutional: Reports: Fatigue, Weight Loss; Denies: Chills, Fever Eyes: Denies: Pain HEENT: Denies: Head Aches Skin: Denies: Rash Pulmonary: Reports: Dyspnea, Cough Cardiovascular: Denies: Chest Pain, Palpitations Gastrointestinal: Denies: Abdominal Pain Musculoskeletal: Reports: Midthoracic pain; Denies: Neck pain, Back pain Neurological: Denies: Weakness, Numbness Psych: Reports: Mood Normal Physical Examination Vital Signs Wt 176 lbs T 97.2 P 127 RR 24 BP 80/50 O2 96% Pain 0 Fatigue 4 General Exam: Positive: Alert, Cooperative, No Acute Distress Eye Exam: Positive: PERRLA, EOMI ENT EXAM: Positive: Atraumatic Neck Exam: Positive: Supple Chest Exam: Positive: Clear to auscultation Heart Exam: Positive: Regular Rhythm; Negative: Rate Normal Abdomen Exam: Positive: Soft Extremity Exam: Negative: Edema Neuro Exam: Positive: Normal Gait, Normal Speech, Cranial Nerves 3-12 NL Psych Exam: Positive: Mental status NL Diagnostic and Laboratory Diagnostic Review Radiologic images, relevant labs and pathology reports were personally reviewed and discussed with Mr. Delarosa. Assessment and Plan Impression Assessment Mr. Delarosa is a 71 year old male with a history of ES SCLC [id number] he completed 4 cycles of cisplatin and etoposide and received thoracic RT concurrent with cycle 3 of chemotherapy 60 Gy in 30 fractions completed 12/04/20. He had an initial favorable response in the chest on CT from 12/07/20. He had a restaging MRI head on 01/04/21 with a solitary and indeterminate 3 mm lesion in the right cerebellum. We opted to repeat the MRI in 2 months. This was done on 03/11/21 and showed overt progression in the brain. He has several small metastases in the brain which are asymptomatic. He also has radiographic evidence of progression in the chest. Discussed his option of WBRT 30 Gy in 10 fractions for the brain lesions. He is seeing Dr. Bryant later today, who may recommend second-line systemic therapy. The other option would be hospice, I did not brooch this with him as much depends on his chemotherapy candidacy. I told Marcelo the chance of BREAKER MECHANIC control in the short term is good, the lesions are small. The chance of lasting control over this disease however is low. He will consider his options with Dr. Bryant. Tentatively, I will plan on simulating him for WBRT later this week and starting next week if he continues systemic therapy. If he selects hospice, then we can cancel the simulation. Performance Status ECOG 2 Plan WBRT 30 Gy in 10 fractions pending decision on further systemic therapy with Dr. Bryant Simulation in the next few days Will add namenda if patient amenable Mr. Delarosa was encouraged to call with questions or concerns in the interim period. Billing Statement Total time of [23] minutes was spent preparing for the visit [1], obtaining HPI [3], examining the patient [2], reviewing diagnostic tests [3], discussing management options [6], coordinating care [1], and writing this note [7]. GENTRY HIDALGO MD March 12, 2021 13:27
== END ==
LOC: M ONCR 12:42
PROVIDERS: ATTEND General Practice
DX: C34.31 Malignant neoplasm of lower lobe, right bronchus or lung (principal); C79.31 Secondary malignant neoplasm of brain

== ENCOUNTER 2021-04-01 09:54 | Outpatient (RCR) | payer MEDICARE ==
[~2021-04-01 09:54] MED LIST changes: +DEXA2TA PO; +OXYC20TA2 PO; +SERT-141 PO
[2021-04-09] MEDS ORDERED: OXYC-405 PO (13:55)
== END 2021-04-08 ==
LOC: M ONCR 09:54
PROVIDERS: ATTEND General Practice
DX: C79.31 Secondary malignant neoplasm of brain (principal)

== ENCOUNTER → 2021-04-30 | Outpatient (CLI) | payer MEDICARE ==
[~2021-04-30] MED LIST changes: +OXYC-405 PO
--- NOTE | 2021-04-30 09:20 | RADENCPD ---
Date/Time of Encounter Date of Encounter: Apr 30, 2021 Time of Encounter: 09:02 Encounter Marcelo came in for a brief follow up this AM to discuss his left anterior chest pain. He notes that the palpable lesion there has grown over the last 3 weeks and is exquisitely tender and painful. Oxycodone 40 mg is helpful but not completely relieving. He completed the decadron taper s/p WBRT and is headache free at this time. His appetite is poor. His weight is down 4 lbs in the past 3 weeks. On exam he has a large anterior chest wall mass at the insertion of the ~left 6th rib with the sternum, it is firm and quite tender, it is ~6.5 cm in greatest extent. There are no overlying skin changes. His chemotherapy was held due to low platelets. He is on home O2 2L NC at all times. He is increasingly immobile due to pain and also SOB. He expressed concern about his prognosis, he and his son Son, here with him today, both recognize that his condition is deteriorating. I stated honestly that I think he would qualify for hospice, and that he may be entering the terminal phase of this illness as evidenced by his continued declining performance status and mounting symptoms. To that end I discussed a referral to palliative care to explore home hospice as an option and also to get him most effective symptom management. He is reticent to continue chemotherapy due to obvious progression. I think he would be best served by hospice at this juncture, I did share this with him and he was appreciative of this. In the meantime, because his left anterior chest wall lesion is growing and highly symptomatic I recommended a single fraction of palliative RT 8 Gy x 1. This can be accomplished with simulation tomorrow and treatment the following day. This would not conflict with hospice enrollment should he choose that avenue. He agreed to proceed. I have refilled his oxycodone 20 mg tabs, 2 tabs QID PRN (MDD 8 tabs) DISP 240 tab GENTRY HIDALGO MD Apr 30, 2021 09:20
== END ==
LOC: M ONCR 08:26
PROVIDERS: ATTEND General Practice
DX: R22.2 Localized swelling, mass and lump, trunk (principal); R06.02 Shortness of breath; C34.31 Malignant neoplasm of lower lobe, right bronchus or lung; C79.31 Secondary malignant neoplasm of brain; R07.89 Other chest pain; Z99.81 Dependence on supplemental oxygen

== ENCOUNTER 2021-05-03 11:12 | Outpatient (RCR) | payer MEDICARE | END 2021-05-08 | LOC: M ONCR 11:12 | PROVIDERS: ATTEND General Practice | DX: C79.51 Secondary malignant neoplasm of bone (principal) ==

== ENCOUNTER → 2021-06-12 | Outpatient (CLI) | payer MEDICARE ==
[~2021-06-12] MED LIST changes: +CIPR-249 PO; +POTA1TAB14 PO
--- NOTE | 2021-06-12 15:05 | RADONC ---
Radiation Oncology Hx/FUP Radiation Oncology Hx/FUP Date of Service: Jun 12, 2021 Pt Identifier Marcelo Delarosa is a 71 year old male seen for a followup visit today at the department of radiation oncology for a history of ES SCLC [id number] he completed 4 cycles of cisplatin and etoposide and received thoracic RT concurrent with cycle 3 of chemotherapy 60 Gy in 30 fractions completed 12/04/20. He had an initial favorable response in the chest on CT from 12/07/20. He had a restaging MRI head on 01/04/21 with a solitary and indeterminate 0.3 cm lesion in the right cerebellum. We opted to repeat the MRI in 2 months. This was done on 03/11/21 and showed overt progression in the brain, he subsequently underwent WBRT with namenda 30 Gy in 10 fractions completed 04/01/21. He then complained of left chest wall pain and was noted to have an anterior rib fracture of indeterminate pathology, he received 8 Gy in 1 fraction for this on 05/03/21. He is seen today for assessment of his pain response. Diagnosis/Treatment History Oncologic History History of right sided empyema 2017. Presented in Summer 2019 with increased cough and sputum production, CT done 07/05/20 at [facility] showed a right lung mass. He underwent bronchoscopy with biopsy on 08/06/20 which returned SCLC. He had staging MRI brain done on 08/17/20 which was negative. He had a PET-CT done on 08/21/20 which on my read shows a large RLL mass, with associated avid hilar and mediastinal lynne disease as well as some mildly avid right supraclavicular nodes. There is focal uptake in the left third rib, spinous process of L2, as well as the left SI region consistent with early bone metastases. He was started on cisplatin, etoposide and durvalumab from 09/17/20. He received thoracic RT concurrent with cycle 3 60 Gy in 30 fractions from 10/22/20-12/04/20. He completed 4 cycles of chemotherapy in total and was maintained on durvalumab. MRI head from 01/04/21 showed a solitary enhancing 0.3 cm lesion in the right cerebellum, out of concern for neurocognitive sequelae we opted to repeat MRI in [address] chest from 02/25/21 showed marked progression in the left chest he opted to begin second line carbo/irinotecan. 03/11/21 MRI head showed overt intracranial progression in the posterior fossa, asymptomatic. 03/18/21-04/01/21 WBRT 30 Gy in 10 fractions with namenda 05/03/21 8 Gy x 1 for left anterior rib lesion 06/04/21 Discussed transition to lurbinectedin with Dr. Bryant plan for restaging scans Pending data: 06/26/21 MRI head Interval History Marcelo is here with his brother. Marcelo has stable pain, taking 20-40 mg of oxycodone QID. Moving his bowels regularly. He has no new sites of pain, still mainly in the left chest and substernal. He has no BILLINGS, N, V. Currently feels especially well as he received steroids with his most recent infusion. Continues on 2L NC O2. Current Therapy Carbo/irinotecan Stage ES SCLC [id number] stage IV Social History: Former smoker 40+ pack year quit 1999 Dinks 1-2 beers daily Allergies / Meds Allergies: Coded Allergies: No Known Allergies (Unverified , 08/01/20) Home Meds Active Scripts Oxycodone Hcl (Oxycodone HCl) 20 Mg Tablet, 2 TAB PO QIDP PRN for BREAKTHROUGH PAIN -08/18 MDD 8 Tablet(s), #120 TAB Prov:DANIEL BRYANT MD 06/04/21 Oxycodone HCl (Oxycodone HCl ER) 40 Mg Tab.er.12h, 1 TAB PO BIDP PRN for pain MDD 2 Tablet(s) for 30 Days, #60 TAB Prov:DANIEL BRYANT MD 04/09/21 Sertraline Hcl (Sertraline HCl) 50 Mg Tablet, 1 TAB PO DAILY for Anxiety, #30 TAB 3 Refills Prov:GENTRY HIDALGO MD 03/25/21 Dexamethasone (Dexamethasone) 2 Mg Tablet, 1 TAB PO DAILY for 14 Days, #14 TAB Prov:GENTRY HIDALGO MD 03/25/21 Memantine HCl (Memantine HCl) 10 Mg Tablet, 1 TAB PO BID, #60 TAB 5 Refills Begin upon completion of dose pack Prov:GENTRY HIDALGO MD 03/15/21 Metoclopramide HCl (Metoclopramide HCl) 5 Mg Tablet, 1 TAB PO BID for 30 Days, #60 TAB Prov:GENTRY HIDALGO MD 11/16/20 Furosemide (Furosemide) 20 Mg Tablet, 20 MG PO DAILY for 30 Days, #30 TAB 3 Refills Prov:DANIEL BRYANT MD 10/08/20 Reported Medications Fluticasone/Vilanterol (Breo Ellipta 200-25 Mcg INH) 1 Each Blst.w.dev, 1 PUFF PO DAILY for 30 Days, #1 EA 01/21/21 Fluticasone Propionate (Flovent Diskus) 250 Mcg Blst.w.dev, 250 MCG IN DAILY 08/20/20 Azelastine HCl (Azelastine HCl) 0.1% [place].pump, 2 SPRAY NARES PRN for 30 Days, #30 ML 08/20/20 Lisinopril/Hydrochlorothiazide (Lisinopril-Hctz 20-12.5 mg Tab) 1 Each Tablet, 1 TAB PO DAILY for 30 Days, #30 TAB 08/20/20 Albuterol Sulfate (Ventolin Hfa) 18 Gm Hfa.aer.ad, 2 PUFF INH Q4-6HP PRN for wheezing for 30 Days, #1 INHALER 08/06/20 Amlodipine Besylate (Amlodipine Besylate) 10 Mg Tablet, 1 TAB PO DAILY for every other day for 30 Days, #30 TAB daily 08/06/20 Ibuprofen (Ibuprofen) 200 Mg Capsule, 800 MG PO PRN, CAP 08/01/20 Review of Systems Review of Systems HEENT: Denies: Head Aches Skin: Denies: Rash Pulmonary: Reports: Dyspnea, Cough, Pleuritic Chest Pain Cardiovascular: Reports: Chest Pain Gastrointestinal: Denies: Abdominal Pain, Diarrhea Genitourinary: Denies: Frequency Musculoskeletal: Reports: Midthoracic pain; Denies: Neck pain, Back pain Neurological: Denies: Weakness, Numbness Psych: Reports: Mood Normal Physical Examination Vital Signs Wt 154 lbs (from 168 on 04/30/21) T 96.4 P 114 RR 24 BP 95/66 O2 93% Pain 5 Fatigue 3 General Exam: Alert, Cooperative, No Acute Distress, Other (Pale, temporal wasting noted) Eye Exam: PERRLA, EOMI ENT EXAM: Atraumatic Neck Exam: Supple Chest Exam: Clear to auscultation, Rhonchi Heart Exam: Rate Normal, Regular Rhythm Abdomen Exam: Soft Extremity Exam: Negative: Edema Skin Exam: Nl turgor and temperature Neuro Exam: Normal Gait, Normal Speech, Cranial Nerves 3-12 NL Psych Exam: Mental status NL Diagnostic and Laboratory Diagnostic Review Radiologic images, relevant labs and pathology reports were personally reviewed and discussed with Mr. Delarosa. Assessment and Plan Impression Assessment Mr. Delarosa is a 71 year old male with a history of ES SCLC [id number] he completed 4 cycles of cisplatin and etoposide and received thoracic RT rust with cycle 3 of chemotherapy 60 Gy in 30 fractions completed 12/04/20. He had an initial favorable response in the chest on CT from 12/07/20. He had a restaging MRI head on 01/04/21 with a solitary and indeterminate 0.3 cm lesion in the right cerebellum. We opted to repeat the MRI in 2 months. This was done on 03/11/21 and showed overt progression in the brain, he subsequently underwent WBRT with namenda 30 Gy in 10 fractions completed 04/01/21. He then complained of left chest wall pain and was noted to have an anterior rib fracture of indeterminate pathology, he received 8 Gy in 1 fraction for this on 05/03/21. He is seen today for assessment of his pain response. Marcelo reports stable pain, we discussed that additional RT is unlikely to be helpful at this time for pain control, but that we could consider a change of pain medication agents. I opined that sublingual morphine, which is especially helpful for air hunger, may offer that additional benefit to him. He would like to consider the matter and will call if he would like a change. With respect to treatment we discussed that his continued weight loss and declining functional status likely means ongoing progression. Thankfully he at least has noted no neurocognitive sequelae of WBRT or BILLINGS. We agreed to wait for his restaging MRI head and body scans before making a decision about whether to continue cancer treatment or switch to hospice. He will have his MRI on 06/26/21 and I will follow up with him the next day. Dr. Bryant is coordinating body scans. Performance Status ECOG 3 Plan MRI head as scheduled 06/26/21 No additional RT for now pending restaging scans Body scans per Dr. Bryant Will consider sublingual morphine as next line of pain medication if Herve chooses Continued assessment of C Follow up by phone 06/27/21 to discuss MRI head Mr. Delarosa was encouraged to call with questions or concerns in the interim period. Billing Statement Total time of [25] minutes was spent preparing for the visit [1], obtaining HPI [5] examining the patient [2], reviewing diagnostic tests [2], discussing management options [7], coordinating care [1], and writing this note [7]. GENTRY HIDALGO MD Jun 12, 2021 15:05
== END ==
LOC: M ONCR 13:29
PROVIDERS: ATTEND General Practice
DX: C34.31 Malignant neoplasm of lower lobe, right bronchus or lung (principal); C79.31 Secondary malignant neoplasm of brain; Z87.891 Personal history of nicotine dependence; Z92.21 Personal history of antineoplastic chemotherapy; Z92.3 Personal history of irradiation

== ENCOUNTER → 2021-06-21 | Outpatient (CLI) | payer MEDICARE ==
[~2021-06-21] MED LIST changes: +ISOVUE-370 76% 100ML VIAL As Ordered ONE
--- NOTE | 2021-06-21 16:00 | REP ---
INDICATION: LUNG CA. COMPARISON: 02/25/2021 TECHNIQUE: Scans were obtained during contrast administration. FINDINGS: There are extensive chronic pleural and parenchymal changes in both lungs. Since the previous study there is now interval development of large right lower lobe pneumonia and small left lower lobe pneumonia. IMPRESSION: Development of new bilobar pneumonia since the previous study. <Electronically signed by Kvng Hassan > 06/21/21 [id number]
--- NOTE | 2021-06-24 17:08 | MEDONCTEEN ---
Date/Time of Encounter Date of Encounter: Jun 24, 2021 Time of Encounter: 17:00 Telephone Encounter I called Marcelo Mauricio and advised him to start Cipro 500 mg twice daily for 5 days. He already has filled up the prescription and he is going to start Cipro for his pneumonia found out on CT scan. DANIEL WILSON MD Jun 24, 2021 17:08
== END ==
LOC: M RAD 15:29
PROVIDERS: ATTEND Specialist
DX: J18.9 Pneumonia, unspecified organism (principal); C34.90 Malignant neoplasm of unspecified part of unspecified bronchus or lung
CPT/HCPCS: 71260; Q9967

== ENCOUNTER → 2021-06-26 | Outpatient (CLI) | payer MEDICARE ==
[~2021-06-26] MED LIST changes: -ISOVUE-370 76% 100ML VIAL As Ordered ONE; +PROHANCE 279.3MG/ML 15ML VIAL As Ordered ONE
--- NOTE | 2021-06-27 13:02 | REPVR ---
PROCEDURE INFORMATION: Exam: MR Head Without and With Contrast Exam date and time: 06/26/2021 11:53 AM Age: 71 years old Clinical indication: Screening exam; Additional info: Lung CA, brain mets TECHNIQUE: Imaging protocol: MR of the head without and with intravenous contrast. Contrast material: PROHANCE; Contrast volume: 14 ml; Contrast route: INTRAVENOUS (IV); COMPARISON: 1. MRI-Brain W/O FOLL BY WITH 03/11/2021 2:10 PM The report from the previous exam was not immediately available. 2. MRI-Brain W/O FOLL BY WITH 01/04/2021 1:04:11 PM FINDINGS: Limitations: The study is mildly limited due to patient motion artifact. Brain: The previously noted 2.3 cm enhancing metastatic lesion in the right cerebellum has dramatically decreased in size. A residual 10 mm nonenhancing cystic lesion is present in this area. No significant surrounding edema is present. The other small cerebellar metastases visualized on the previous exam are difficult to visualize. Despite artifact through the cerebellum on the enhanced sequences, these have likely also significantly diminished in size to near inconspicuity. Scattered increased T2 and FLAIR signal within the periventricular and subcortical white matter is present. Increased T2 signal is also present in the central tien. This is nonspecific but likely related to chronic microangiopathic ischemic change. There is no acute intracranial hemorrhage, mass effect or midline shift. No restricted diffusion is present to suggest acute infarction. Cerebral ventricles: No hydrocephalus. Bones/joints: Osseous metastatic disease is present within the clivus. Scattered calvarial metastases are also noted. Paranasal sinuses: Normal as visualized. No acute sinusitis. Mastoid air cells: A right mastoid effusion is present. There is minimal fluid in the left mastoid air cells. Orbital cavity: Unremarkable. Soft tissues: Unremarkable. IMPRESSION: 1. Improved cerebellar metastases as discussed above 2. Multiple calvarial and skull base metastases. Electronically signed by: Robe Ellington On 06/27/2021 13:02:06 PM
== END ==
LOC: M RAD 10:43
PROVIDERS: ATTEND General Practice
DX: C79.31 Secondary malignant neoplasm of brain (principal)
CPT/HCPCS: 70553; A9576

== ENCOUNTER → 2021-06-27 | Outpatient (CLI) | payer MEDICARE ==
[~2021-06-27] MED LIST changes: -PROHANCE 279.3MG/ML 15ML VIAL As Ordered ONE
--- NOTE | 2021-06-27 11:37 | RADONC ---
Radiation Oncology Hx/FUP Radiation Oncology Hx/FUP Date of Service: Jun 27, 2021 Pt Identifier Marcelo Delarosa is a 71 year old male called for a telehealth visit today at the department of radiation oncology for a history of ES SCLC [id number] he completed 4 cycles of cisplatin and etoposide and received thoracic RT concurrent with cycle 3 of chemotherapy 60 Gy in 30 fractions completed 12/04/20. He had an initial favorable response in the chest on CT from 12/07/20. He had a restaging MRI head on 01/04/21 with a solitary and indeterminate 0.3 cm lesion in the right cerebellum. We opted to repeat the MRI in 2 months. This was done on 03/11/21 and showed overt progression in the brain, he subsequently underwent WBRT with namenda 30 Gy in 10 fractions completed 04/01/21. He then complained of left chest wall pain and was noted to have an anterior rib fracture of indeterminate pathology, he received 8 Gy in 1 fraction for this on 05/03/21. We are discussing his scan results today. Diagnosis/Treatment History Oncologic History History of right sided empyema 2017. Presented in Summer 2019 with increased cough and sputum production, CT done 07/05/20 at [facility] showed a right lung mass. He underwent bronchoscopy with biopsy on 08/06/20 which returned SCLC. He had staging MRI brain done on which was negative. He had a PET-CT done on 08/21/20 which on my read shows a large RLL mass, with associated avid hilar and mediastinal lynne disease as well as some mildly avid right supraclavicular nodes. There is focal uptake in the left third rib, spinous process of L2, as well as the left SI region consistent with early bone metastases. He was started on cisplatin, etoposide and durvalumab from 09/17/20. He received thoracic RT concurrent with cycle 3 60 Gy in 30 fractions from 10/22/20-12/04/20. He completed 4 cycles of chemotherapy in total and was maintained on durvalumab. MRI head from 01/04/21 showed a solitary enhancing 0.3 cm lesion in the right cerebellum, out of concern for neurocognitive sequelae we opted to repeat MRI in [address] chest from 02/25/21 showed marked progression in the left chest he opted to begin second line carbo/irinotecan. 03/11/21 MRI head showed overt intracranial progression in the posterior fossa, asymptomatic. 03/18/21-04/01/21 WBRT 30 Gy in 10 fractions with namenda 05/03/21 8 Gy x 1 for left anterior rib lesion 06/04/21 Discussed transition to lurbinectedin with Dr. Bryant plan for restaging paulino george Recent data: 06/26/21 MRI brain Negative for metastases 06/21/21 CT chest Progression of BL airspace disease Interval History Marcelo is on the line with [facility]. He endorses continued pain in the chest stretching left to right anteriorly. Pain stable with oxycodone, tolerable. No new sites of pain. No BILLINGS, N, V, constipation. Current Therapy Carbo/irinotecan Stage ES SCLC [id number] stage IV Social History: Former smoker 40+ pack year quit 1999 Dinks 1-2 beers daily Allergies / Meds Allergies: Coded Allergies: No Known Allergies (Unverified , 08/01/20) Home Meds Active Scripts Oxycodone Hcl (Oxycodone HCl) 20 Mg Tablet, 2 TAB PO QIDP PRN for BREAKTHROUGH PAIN 8-08/18 MDD 8 Tablet(s), #120 TAB Prov:GENTRY HIDALGO MD 06/27/21 Sertraline Hcl (Sertraline HCl) 50 Mg Tablet, 1 TAB PO DAILY for Anxiety, #90 TAB 3 Refills Prov:GENTRY HIDALGO MD 06/27/21 Potassium Chloride (Potassium Chloride) 20 Meq Tablet.er, 1 TAB PO DAILY for 10 Days, #10 TAB 1 Refill Prov:DANIEL BRYANT MD 06/18/21 Ciprofloxacin HCl (Cipro) 500 Mg Tablet, 500 MG PO BID for 7 Days, #14 TAB 2 Refills Prov:DANIEL BRYANT MD 06/18/21 Oxycodone Hcl (Oxycodone HCl) 20 Mg Tablet, 2 TAB PO QIDP PRN for BREAKTHROUGH PAIN 8-08/18 MDD 8 Tablet(s), #120 TAB Prov:DANIEL BRYANT MD 06/04/21 Oxycodone Hcl (Oxycodone HCl) 20 Mg Tablet, 2 TAB PO QIDP PRN for BREAKTHROUGH PAIN 8-08/18 MDD 8 Tablet(s), #120 TAB Prov:DANIEL BRYANT MD 06/04/21 Oxycodone HCl (Oxycodone HCl ER) 40 Mg Tab.er.12h, 1 TAB PO BIDP PRN for pain MDD 2 Tablet(s) for 30 Days, #60 TAB Prov:DANIEL BRYANT MD 04/09/21 Dexamethasone (Dexamethasone) 2 Mg Tablet, 1 TAB PO DAILY for 14 Days, #14 TAB Prov:GENTRY HIDALGO MD 03/25/21 Memantine HCl (Memantine HCl) 10 Mg Tablet, 1 TAB PO BID, #60 TAB 5 Refills Begin upon completion of dose pack Prov:GENTRY HIDALGO MD 03/15/21 Metoclopramide HCl (Metoclopramide HCl) 5 Mg Tablet, 1 TAB PO BID for 30 Days, #60 TAB Prov:GENTRY HIDALGO MD 11/16/20 Furosemide (Furosemide) 20 Mg Tablet, 20 MG PO DAILY for 30 Days, #30 TAB 3 Refills Prov:DANIEL BRYANT MD 10/08/20 Reported Medications Fluticasone/Vilanterol (Breo Ellipta 200-25 Mcg INH) 1 Each Blst.w.dev, 1 PUFF PO DAILY for 30 Days, #1 EA 01/21/21 Fluticasone Propionate (Flovent Diskus) 250 Mcg Blst.w.dev, 250 MCG IN DAILY 08/20/20 Azelastine HCl (Azelastine HCl) 0.1% [place].pump, 2 SPRAY NARES PRN for 30 Days, #30 ML 08/20/20 Lisinopril/Hydrochlorothiazide (Lisinopril-Hctz 20-12.5 mg Tab) 1 Each Tablet, 1 TAB PO DAILY for 30 Days, #30 TAB 08/20/20 Albuterol Sulfate (Ventolin Hfa) 18 Gm Hfa.aer.ad, 2 PUFF INH Q4-6HP PRN for wheezing for 30 Days, #1 INHALER 08/06/20 Amlodipine Besylate (Amlodipine Besylate) 10 Mg Tablet, 1 TAB PO DAILY for every other day for 30 Days, #30 TAB daily 08/06/20 Ibuprofen (Ibuprofen) 200 Mg Capsule, 800 MG PO PRN, CAP 08/01/20 Physical Examination Vital Signs TELEHEALTH Diagnostic and Laboratory Diagnostic Review Radiologic images, relevant labs and pathology reports were personally reviewed and discussed with Mr. Delarosa. Assessment and Plan Impression Assessment Mr. Delarosa is a 71 year old male with a history of ES SCLC [id number] he completed 4 cycles of cisplatin and etoposide and received thoracic RT concurrent with cycle 3 of chemotherapy 60 Gy in 30 fractions completed 12/04/20. He had an initial favorable response in the chest on CT from 12/07/20. He had a restaging MRI head on 01/04/21 with a solitary and indeterminate 0.3 cm lesion in the right cerebellum. We opted to repeat the MRI in 2 months. This was done on 03/11/21 and showed overt progression in the brain, he subsequently underwent WBRT with namenda 30 Gy in 10 fractions completed 04/01/21. He then complained of left chest wall pain and was noted to have an anterior rib fracture of indeterminate pathology, he received 8 Gy in 1 fraction for this on 05/03/21. We are discussing his scan results today. I reviewed the MRI head results which are favorable, there is no evidence of residual metastasis or new metastases. However the CT chest clearly shows progression of airspace disease BL, NB that in the anterior right upper lobe which is markedly worse. I discussed that at this impasse, I do not see a role for additional RT as the right lung has received prior treatment and to effectively target the disease present now would possibly result in a fatal pneumonitis. Rather, I encouraged Herve to discuss switching systemic therapy with Dr. Bryant or considering transition to hospice. He would like to continue to pursue active treatment, which is reasonable. In the meantime I will refill his pain medication and SSRI and order a MRI head for 3 months from now with follow up afterward. Performance Status ECOG 2 Plan MRI head in 3 months Follow up in 3 months Patient will follow up with Dr. Bryant additional systemic therapy No role for additional thoracic RT Refilled oxycodone 20 mg QID PRN Refilled sertraline 50 mg daily Mr. Delarosa was encouraged to call with questions or concerns in the interim period. Billing Statement Total time of [12] minutes was spent on the phone with the patient discussing management of his lung cancer and symptoms. GENTRY HIDALGO MD Jun 27, 2021 11:36
== END ==
LOC: M ONCR 11:23
PROVIDERS: ATTEND General Practice
DX: C34.31 Malignant neoplasm of lower lobe, right bronchus or lung (principal); C79.31 Secondary malignant neoplasm of brain; Z79.899 Other long term (current) drug therapy; Z87.891 Personal history of nicotine dependence; Z92.21 Personal history of antineoplastic chemotherapy; Z92.3 Personal history of irradiation

== ENCOUNTER → 2021-07-03 | Outpatient (CLI) | payer MEDICARE ==
--- NOTE | 2021-07-03 13:42 | REP ---
INDICATION: SMALL CELL RENAL CA COMPARISON: Correlation with CT dated 06/21/2021 TECHNIQUE: PA and lateral. FINDINGS: Diffuse chronic emphysematous and fibrotic changes along with post radiation type changes are noted. Acute superimposed left basilar and right sided pulmonary parenchymal process cannot be excluded due to overwhelming chronic changes. Mediastinum and cardiac silhouette relatively stable. [id number] identified with its tip likely in the jugular vein above the level of the clavicle. IMPRESSION: Limited by significant chronic changes. Cannot exclude superimposed process. <Electronically signed by Clark Patel > 07/03/21 [id number]
== END ==
LOC: M CLY 13:14
PROVIDERS: ATTEND Specialist
DX: C64.9 Malignant neoplasm of unspecified kidney, except renal pelvis (principal); J43.9 Emphysema, unspecified; Z95.828 Presence of other vascular implants and grafts

== ENCOUNTER → 2021-08-12 | Outpatient (REF) | payer MEDICARE ==
[~2021-08-12] MED LIST changes: +FLOV250A IN; -FLOV250A2 IN
[2021-08-12 16:42] LABS: BASO % 0.4 % (0.0-1.0); EOS % 0.4 % (0.0-3.0); HEMATOCRIT 25.8 % (42.0-52.0); HEMOGLOBIN 8.6 g/dl (13.5-17.5); LYMPH # 0.3 10^3/uL (1.5-5.0); LYMPH % 6.4 % (24.0-44.0); MEAN CORPUSCULAR HEMOGLOBIN 35.5 pg (27.0-33.0); MEAN CORPUSCULAR HGB CONC 33.3 g/dl (32.0-36.5); MEAN CORPUSCULAR VOLUME 106.6 fl (80.0-96.0); MONO # 0.1 10^3/uL (0.0-0.8); MONO % 2.2 % (2.0-8.0); NEUTROPHILS # 4.5 10^3/uL (1.5-8.5); NEUTROPHILS % 89.8 % (36.0-66.0); RED BLOOD COUNT 2.42 10^6/uL (4.30-6.10)
[2021-08-12 17:08] LABS: PLATELET COUNT, AUTOMATED 78 10^3/uL (150-450)
[2021-08-12 17:22] LABS: ALBUMIN 2.5 GM/DL (3.2-5.2); ALT/SGPT 30 U/L (12-78); BILIRUBIN,TOTAL 0.4 MG/DL (0.2-1.0); BLOOD UREA NITROGEN 10 MG/DL (7-18); CALCIUM LEVEL 8.8 MG/DL (8.8-10.2); CARBON DIOXIDE LEVEL 26 MEQ/L (21-32); CHLORIDE LEVEL 104 MEQ/L (98-107); CREATININE FOR GFR 0.47 MG/DL (0.70-1.30); GLOMERULAR FILTRATION RATE > 60.0 (>49); GLUCOSE, FASTING 118 MG/DL (70-100); MAGNESIUM LEVEL 1.4 MG/DL (1.8-2.4); POTASSIUM SERUM 3.9 MEQ/L (3.5-5.1); SODIUM LEVEL 140 MEQ/L (136-145); TOTAL PROTEIN 6.3 GM/DL (6.4-8.2)
== END ==
LOC: M LAB REF 15:44 → M LABDRAWC 15:44
PROVIDERS: ATTEND Specialist
DX: C34.90 Malignant neoplasm of unspecified part of unspecified bronchus or lung (principal)

== ENCOUNTER → 2021-09-02 | Outpatient (REF) | payer MEDICARE ==
[2021-09-02 16:04] LABS: BASO # 0.1 10^3/uL (0.0-0.2); BASO % 0.6 % (0.0-1.0); EOS # 0.1 10^3/uL (0.0-0.5); EOS % 0.7 % (0.0-3.0); HEMATOCRIT 31.8 % (42.0-52.0); HEMOGLOBIN 10.1 g/dl (13.5-17.5); LYMPH # 0.7 10^3/uL (1.5-5.0); LYMPH % 7.3 % (24.0-44.0); MEAN CORPUSCULAR HEMOGLOBIN 33.3 pg (27.0-33.0); MEAN CORPUSCULAR HGB CONC 31.8 g/dl (32.0-36.5); MONO # 0.9 10^3/uL (0.0-0.8); MONO % 9.9 % (2.0-8.0); NEUTROPHILS # 7.2 10^3/uL (1.5-8.5); NEUTROPHILS % 80.6 % (36.0-66.0); PLATELET COUNT, AUTOMATED 255 10^3/uL (150-450); RED BLOOD COUNT 3.03 10^6/uL (4.30-6.10)
[2021-09-02 17:05] LABS: ALBUMIN 2.7 GM/DL (3.2-5.2); ALT/SGPT 12 U/L (12-78); BILIRUBIN,TOTAL 0.3 MG/DL (0.2-1.0); BLOOD UREA NITROGEN 8 MG/DL (7-18); CALCIUM LEVEL 9.6 MG/DL (8.8-10.2); CARBON DIOXIDE LEVEL 28 MEQ/L (21-32); CHLORIDE LEVEL 101 MEQ/L (98-107); GLOMERULAR FILTRATION RATE > 60.0 (>49); GLUCOSE, FASTING 102 MG/DL (70-100); POTASSIUM SERUM 3.6 MEQ/L (3.5-5.1); SODIUM LEVEL 138 MEQ/L (136-145)
== END ==
LOC: M LABDRAWC 15:36
PROVIDERS: ATTEND Specialist
DX: C34.90 Malignant neoplasm of unspecified part of unspecified bronchus or lung (principal)

== ENCOUNTER → 2021-09-04 | Outpatient (CLI) | payer MEDICARE ==
--- NOTE | 2021-09-04 16:12 | REP ---
INDICATION: SMALL CELL LUNG CANCER. COMPARISON: Multiple the latest 07/03/2021 TECHNIQUE: PA and lateral FINDINGS: Cardiomediastinal silhouette is unchanged. There is cardiomegaly status quo. The MediPort device is unchanged. There are chronic bilateral lung field changes right greater than left status quo. There is no evidence of an acute patchy parenchymal opacity or pleural effusion. IMPRESSION: Stable appearing chronic changes as described above. The MediPort device is looped but unchanged. <Electronically signed by Butch Davis > 09/04/21 [id number]
== END ==
LOC: M CLY 14:09
PROVIDERS: ATTEND Specialist
DX: C34.90 Malignant neoplasm of unspecified part of unspecified bronchus or lung (principal)